=== PATIENT | female | born 1940 | race Caucasian/White ===

== ENCOUNTER → 2017-07-17 08:12 | Outpatient (CLI) | payer MEDICARE, SELFPAY ==
--- NOTE | 2017-07-17 08:14 | BI_ITS ---
MAMMOGRAPHY - BILATERAL SCREENING 3-D CYNDI SYNTHESIS REASON FOR EXAM: Female, 76 years old. Bilateral Screening 3-D tomosynthesis PERTINENT HISTORY: No significant family history. TECHNIQUE: 2-D mammograms and 3-D Cyndi synthesis of the breast (s) were performed. CAD was performed. COMPARISON: July 05, 2016. FINDINGS: The breast composition is composed of scattered fibroglandular density. Scattered benign calcifications are seen. No dense spiculated masses or suspicious microcalcifications are identified. No architectural distortion is identified. There is no skin thickening or retraction. There has been no significant change since the prior study. BI/SCREENING MAMM (CAD), BILAT IMPRESSION: No mammographic signs of malignancy. Routine yearly mammograms recommended. ASSESSMENT CATEGORY: BIRADS Category 2: Benign. A letter regarding these results will be sent to the patient by the facility within 30 days. FOLLOW UP RECOMMENDATION: Yearly follow up mammogram recommended. (A) Approximately 10% of breast cancers are not detected by mammography. A normal mammogram should not delay biopsy of a clinically suspicious abnormality. Electronically Signed: Chong Munson MD at 11:07 EDT , Service support ,
== END ==
PROVIDERS: Family Provider Family Medicine; PCP Family Medicine; Visit Provider Nurse Practitioner Adult Health
DX: Z12.31 Encounter for screening mammogram for malignant neoplasm of breast (principal)
CPT/HCPCS: 77063; 77067

== ENCOUNTER → 2018-03-03 09:21 | Outpatient (CLI) | payer MEDICARE, SELFPAY ==
--- NOTE | 2018-03-03 09:28 | RAD_ITS ---
STUDY: X-RAY - ESOPHAGUS (BARIUM SWALLOW) WITH FLUOROSCOPY REASON FOR EXAM: Female, 77 years old. Dysphasia. TECHNIQUE: 15 view(s) of the esophagus were obtained following swallowing of barium. FLUOROSCOPY TIME (if supplied): (0:27) minutes/seconds COMPARISON: None. FINDINGS: There is no demonstrated esophageal foreign body. There is no demonstrated stricture or mucosal abnormality. Normal gastroesophageal junction, without a demonstrated hiatal hernia. The patient ingested a 12 mm tablet of barium without any difficulty. Normal visualized aortic arch and descending thoracic aorta. Normal visualized pulmonary parenchyma. Normal visualized osseous structures of the thorax. RAD/Esophagus Only IMPRESSION: Normal plain film x-ray examination (barium swallow) of the esophagus. Electronically Signed: Dawit Jerry MD at 9:40 EST Tel [phone], Service support ,
== END ==
PROVIDERS: Family Provider Family Medicine; PCP Family Medicine; Referring Provider Otolaryngology Otolaryngology/Facial Plastic Surgery; Visit Provider Otolaryngology Otolaryngology/Facial Plastic Surgery
DX: R13.10 Dysphagia, unspecified (principal)
CPT/HCPCS: 74220

== ENCOUNTER → 2018-08-01 12:07 | Outpatient (CLI) | payer MEDICARE, SELFPAY ==
--- NOTE | 2018-08-01 12:09 | BI_ITS ---
MAMMOGRAPHY - BILATERAL SCREENING REASON FOR EXAM: Female, 78 years old. Routine annual screening examination. PERTINENT HISTORY: Non-contributory. TECHNIQUE: Digital bilateral breast meche (3D mammographic acquisition) in the CC and MLO projections. 2-D mediolateral oblique (MLO) and craniocaudad (CC) views of both breasts were obtained. CAD: Full Field Digital Mammography with Computer Added Detection was performed. COMPARISON: Comparison is made with prior study dated July 17, 2017 and July 05, 2016. FINDINGS: Breast Composition: There are scattered areas of fibroglandular density. There are no dominant masses or suspicious calcifications. No other significant abnormalities are identified. There has been no significant change since the prior study. BI/SCREENING MAMM (CAD), BILAT IMPRESSION: Stable bilateral screening mammogram. Yearly follow-up mammogram recommended. (A) ASSESSMENT CATEGORY: BIRADS Category 1: Negative. A letter regarding these results will be sent to the patient by the facility within 30 days. Approximately 10% of breast cancers are not detected by mammography. A normal mammogram should not delay biopsy of a clinically suspicious abnormality. [id number] Electronically Signed: Dawit Jerry, at 14:16 EDT , Service support ,
== END ==
PROVIDERS: Family Provider Family Medicine; PCP Family Medicine; Referring Provider Family Medicine; Visit Provider Family Medicine
DX: Z12.31 Encounter for screening mammogram for malignant neoplasm of breast (principal)
CPT/HCPCS: 77063; 77067

== ENCOUNTER → 2018-08-11 09:43 | Outpatient (CLI) | payer MEDICARE, SELFPAY ==
--- NOTE | 2018-08-08 09:42 | RAD_ITS ---
STUDY: X-RAY - RIGHT KNEE REASON FOR EXAM: Female, 78 years old. Bilateral knee pain TECHNIQUE: 4 view(s) of the knee. COMPARISON: None. FINDINGS: Normal visualized distal femur. Normal visualized proximal tibia and fibula. Normal proximal tibiofibular articulation. There is moderate degenerative arthrosis of the medial femorotibial compartment. Chondrocalcinosis of the lateral femorotibial compartment. There is mild degenerative arthrosis of the patellofemoral articulation. There is no demonstrated joint effusion. The soft tissue structures are unremarkable. RAD/Knee 4 or More Views IMPRESSION: 1. Medial dominant osteoarthrosis. Electronically Signed: Epifanio Soto MD at 14:13 EDT , Service support ,
--- NOTE | 2018-08-08 09:42 | RAD_ITS ---
STUDY: X-RAY - LEFT KNEE REASON FOR EXAM: Female, 78 years old. Left knee pain TECHNIQUE: 4 view(s) of the knee. COMPARISON: None. FINDINGS: Normal visualized distal femur. Normal visualized proximal tibia and fibula. Normal proximal tibiofibular articulation. There is moderate degenerative arthrosis of the medial femorotibial compartment with moderate joint space narrowing. Chondrocalcinosis of the lateral femorotibial compartment. There is mild degenerative arthrosis of the patellofemoral articulation. There is no demonstrated joint effusion. The soft tissue structures are unremarkable. RAD/Knee 4 or More Views IMPRESSION: Medial dominant osteoarthrosis Electronically Signed: Epifanio Soto MD at 14:11 EDT , Service support ,
[2018-08-11 13:19] LABS: ALB/GLOB Ratio 1.2 RATIO (0.9-2.4); AST(SGOT) 24 U/L (15-37); Alanine Aminotransfer ALT/SGPT 27 U/L (13-56); Albumin, Serum 3.7 g/dL (3.2-5.0); Alkaline Phosphatase 73 U/L (45-117); Anion Gap 6 (5-15); BUN 18 mg/dL (7-18); BUN/Creat Ratio 30.5 RATIO (10-20); Calcium,Total 8.6 mg/dL (8.5-10.1); Chloride 110 mmol/L (98-107); Cholesterol 144 mg/dL (200); Creatinine, Serum 0.59 mg/dL (0.55-1.02); EST Glomerular Filtration Rate 105 mL/min (>60); Est Glom Filt Rate - Afr Amer 127 mL/min (>60); Glucose 88 mg/dL (74-106); High Density Lipoprotein 59 mg/dL; Protein, Total 6.7 g/dL (6.4-8.2); Sodium Level 145 mmol/L (136-145); Triglycerides 69 mg/dL; Very Low Density Lipoprotein 14 mg/dL (5-40); Vitamin D,25 Hydroxy 36.3 ng/mL (29.95-100.01)
== END ==
PROVIDERS: Family Provider Family Medicine; PCP Family Medicine; Referring Provider Family Medicine; Visit Provider Family Medicine
DX: Z00.00 Encounter for general adult medical examination without abnormal findings (principal); M25.561 Pain in right knee; M25.562 Pain in left knee; E78.5 Hyperlipidemia, unspecified; E55.9 Vitamin D deficiency, unspecified
CPT/HCPCS: 36415; 73564; 80053; 80061; 82306

== ENCOUNTER → 2018-08-14 09:24 | Outpatient (CLI) | payer MEDICARE, SELFPAY ==
--- NOTE | 2018-08-14 09:38 | BD_ITS ---
STUDY: DUAL ENERGY X-RAY ABSORPTIOMETRY / DXA REASON FOR EXAM: Female, 78 years old. The patient is postmenopausal. Loss of height. TECHNIQUE: Bone Mineral Density (BMD) measurements of lumbar spine and right hip were obtained. The patient is status post left hip replacement. COMPARISON: Comparison is made with prior study dated June 08, 2014. FINDINGS: Lumbar Spine (L1-L4): g/cm2 (1.377) / T-score (1.5) / Z-score (3.3) Findings are suggestive of normal bone density with a low fracture risk. Right Femur Total: g/cm2 (0.915) / T-score (-0.7) / Z-score (1.1) Right Femoral Neck: g/cm2 (0.935) / T-score (-0.7) / Z-score (1.3) The T-Scores on the most recent prior examination were: Lumbar Spine (L1-L4): There has been improvement of bone density since the previous examination. Right Femur Total: which represents an improvement of 6%. BD/Dexa Bone Density Study IMPRESSION: The patient is considered normal as outlined below according to World Perez Organization (WHO) criteria with a low fracture risk. There has been improvement of bone density since the previous examination. Reference Information: The T-score is the number of standard deviations above or below the standard which is normal for young adults at their peak bone mineral density. The World Health Organization (WHO) interprets the T-scores as follows: Above -1 Normal bone density Between -1 and -2.5 Osteopenia Equal to / or below -2.5 Osteoporosis As a practical clinical guideline, osteopenia may be graded as follows: Mild -1 through -1.5 Moderate -1.6 through -2.0 Severe -2.1 through -2.4 The Z-score is the number of standard deviations above or below age-matched controls. A Z-score of less than -1.5 would be considered abnormal. References: 1. NIH Osteoporosis and Related Bone Diseases http://www.osteo.org 2. International Society for Clinical Densitometry http://www.iscd.org 3. National Osteoporosis Foundation http://www.nof.org Electronically Signed: Dawit Jerry, at 12:27 EDT , Service support ,
== END ==
PROVIDERS: Family Provider Family Medicine; PCP Family Medicine; Referring Provider Family Medicine; Visit Provider Family Medicine
DX: M81.0 Age-related osteoporosis without current pathological fracture (principal); Z78.0 Asymptomatic menopausal state
CPT/HCPCS: 77080

== ENCOUNTER 2018-09-17 06:45 | Day surgery (SDC) | payer MEDICARE, SELFPAY ==
[2018-08-22 08:40] VITALS: BMI 33.0
--- NOTE | 2018-08-22 08:58 | HP_ITS ---
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 Is patient in pain?: No Allergies No Known Allergies Allergy (Unverified 08/22/18 08:41) Medications ascorbic acid (vitamin C) 500 mg capsule mg PO cap 08/22/18 [History Confirmed 08/22/18] aspirin 81 mg tablet,delayed release 81 mg PO DAILY 08/22/18 [History Confirmed 08/22/18] atorvastatin 20 mg tablet 20 mg PO DAILY 08/22/18 [History Confirmed 08/22/18] calcium carbonate 500 mg calcium (1,250 mg) tablet 500 mg PO DAILY tab 08/22/18 [History Confirmed 08/22/18] cholecalciferol (vitamin D3) 1,000 unit capsule 1,000 unit PO DAILY 08/22/18 [History Confirmed 08/22/18] ferrous sulfate 325 mg (65 mg iron) tablet 325 mg PO DAILY tab 08/22/18 [History Confirmed 08/22/18] naproxen 250 mg tablet 250 mg PO BID PRN 08/22/18 [History Confirmed 08/22/18] PFSH Medical History Ganglion cyst (Acute) High cholesterol (Acute) Surgical History H/O bilateral hip replacements (Acute) H/O section (Acute) Family History Mother Hypertension Father CVA (cerebral vascular accident) Social History Smoking Status: Never smoker alcohol intake: never HPI HPI HPI: SAMINA SHINE, is a 78 F who presents to the office today for HPI HPI Surgical H&P: Yes HPI: SAMINA SHINE, is a 78 F who presents to the office today for screening colonoscopy due to history of polyps. Patient's last colonoscopy was in 2011 in [place] and she did have a small sessile polyp in the proximal ascending colon along with diverticulosis and internal hemorrhoids. Do not currently have the pathology report but patient states she was due in 5 years due to the polyp. Patient does complain of some burning at night which she assumed may be from the rectal area. But upon further questioning it sounds like this only occurs when she urinates. Patient denies any pain or burning with bowel movements and states she has bowel movements daily denies any blood. Patient states the burning at night when urinating have been more than 1999 and now it really occurs maybe once a month. Patient denies any family history of colon cancer. Denies any abdominal pain/nausea/vomiting/reflux. ROS General General: No weight change or fatigue Gastro Gastrointestinal: No abdominal pain, No nausea or vomiting, No diarrhea, No constipation, No blood in stool, No acid reflux, No hemorrhoids, No ulcers, No gallbladder problem, No black,tarry stools Exam Const General: cooperative, comfortable, no acute distress GI Inspection: non-distended, scar (Lower midline incision ) Palpation: soft, nontender Assessment & Plan Problems 1. History of colon polyps Z86.010 Plan I have discussed the above with the patient. I have offered the patient colonoscopy for evaluation. I have explained the risks/benefits of the procedure and described the procedure. I have discussed the risks with the patient, including but not limited to: infection, bleeding, perforation of the GI tract requiring emergency surgery, inability to complete the procedure, injury to any internal organs, complications of anesthesia, etc. - the patient understands and agrees to proceed. I have answered all the patient's questions to the patient's satisfaction and the patient has no further questions. The patient has been given instructions for the colon cleansing preparation. 1 day of clears, MiraLAX Dulcolax split prep Deysi Desai M.D. Pager: [phone] [facility] [address] [place] [address], [facility], [address] [place] [address] Office: [phone] Plan Detail Follow Up We will schedule colonoscopy Coding Level of Care Code Off vis,new,level 3 Diagnoses History of colon polyps Z86.010 08/22/18 0859 <Electronically signed by Deysi Brice am, MD> Date _ Deysi Desai MD I have examined the patient the following changes are noted: Patient denies any abdominal pain or burning sensation at night since seen in the office. Patient no further question at this time.
[2018-09-17 06:58] VITALS: BP 141/88; PULSE 65; RESP 16; TEMP 36.1; O2SAT 96; BMI 30.7
--- NOTE | 2018-09-17 08:00 | COLBX_PTH ---
PATIENT: SAMINA SHINE LOC: EN U#:[id number] AGE/SX: 78/F ROOM: RE09/17/[address]: Dr. Deysi Desai MD : [id number] BED: DIS: 09/17/2018 SPEC #: [id number] RECD: 09/17/18 11:16 STATUS: MARY POOJA #: [id number] RADHA: 09/17/18 08:[address]: Deysi Desai DEPT: SURGICAL PATHOLOGY RECD BY: Brent Verdugo ENTERED: 09/17/18 13:12 SP TYPE: COLON BX OTHR DR: Dr. Bradley Del Valle MD Tissues: Rectum, NOS Procedures: Surgery Specimen Level IV HEADER OPERATION: Colonoscopy (MAC) PRE-OP DIAGNOSIS: Screening colonoscopy, history of polyps TISSUE SUBMITTED: Rectal polyp MICROSCOPIC DIAGNOSIS Rectal polyp: Tubular adenoma. FA:leisa 09/18/18 MICROSCOPIC DESCRIPTION Slides are reviewed. GROSS DESCRIPTION Received in fixative is one container labeled with the patient's name and designated rectal polyp. The specimen consists of a single pinkish-baker polypoid tissue fragment measuring 2 mm in greatest dimension. The specimen is totally submitted in one cassette. / FA:leisa 09/17/18 TC:5 CPT: 16364
[2018-09-17 08:06] VITALS: BP 126/70; BP 141/88; PULSE 78; RESP 16; TEMP 37.2; O2SAT 96
--- NOTE | 2018-09-17 08:07 | OP.ENDO_ITS ---
09/17/2018 Bradley Del Valle MD [address] [id number] Re : Colonoscopy procedure for Gila Goldsmith Dear Dr. Del Valle This procedure was performed on Monday, September 17, 2018. My impressions and recommendations are as follows: Impressions : - One less than 5 mm polyp in the rectum, removed with a cold biopsy forceps. Resected and retrieved. - The examination was otherwise normal on direct and retroflexion views. Recommendations : - Discharge patient to home. - Continue present medications. - Await pathology results. - Repeat colonoscopy in 3 - 5 years for surveillance based on pathology results. My findings are described in the full procedure note, which is enclosed. If I can be of further assistance, please feel free to contact me at Doctor phone number(s): , Work: . Sincerely, MD Deysi Mckeon MD 09/17/2018 8:06:53 AM This report has been signed electronically.
[2018-09-17 08:10] VITALS: BP 137/70; BP 141/88; PULSE 73; RESP 16; O2SAT 97
[2018-09-17 08:15] VITALS: BP 130/72; BP 141/88; PULSE 68; RESP 16; O2SAT 98
[2018-09-17 08:20] VITALS: BP 137/83; BP 141/88; PULSE 68; RESP 16; TEMP 36.1; O2SAT 100
[2018-09-17 08:36] VITALS: BP 141/88
== END 2018-09-17 08:45 | disposition home or self-care (01) ==
LOC: EN 06:46 → AC 06:46
PROVIDERS: Family Provider Family Medicine; PCP Family Medicine; Referring Provider Family Medicine; Visit Provider Surgery
PROC: 0DJD8ZZ Inspection of Lower Intestinal Tract, Via Natural or Artificial Opening Endoscopic (ICD-10-PCS; CPT 45378; principal; 2018-09-17 07:55)
DX: Z12.11 Encounter for screening for malignant neoplasm of colon (principal); D12.8 Benign neoplasm of rectum; K64.8 Other hemorrhoids; E78.00 Pure hypercholesterolemia, unspecified; Z78.0 Asymptomatic menopausal state; Z79.82 Long term (current) use of aspirin; Z79.899 Other long term (current) drug therapy; Z87.19 Personal history of other diseases of the digestive system; Z86.010 Personal history of colon polyps; Z96.643 Presence of artificial hip joint, bilateral
CPT/HCPCS: 45380; 88305; J7120

== ENCOUNTER 2019-03-24 10:00 | Outpatient (RCR) | payer MEDICARE, SELFPAY ==
--- NOTE | 2019-02-25 15:01 | HP.PTEVAL_ITS ---
Patient's Visit Information SAMINA SHINE is a 78 year old F referred to Physical Therapy by Bradley Del Valle MD with a diagnosis of Leg pain. Date of Evaluation: 02/25/19 Physical Therapist: AGUSTINA Dominguez - Visit Plan Frequency: 2x /Week Duration: 2 Months Plan: 2X/ week for 4-6 weeks for L ankle stretching, strengthening, L LE strengtnening ( has a previous L THR), functional activities and gait with a HEP. +++FOCUS ON L ANKLE DF and previous L THR+++ - Subjective Findings: Pt reports that 10 years ago she was having L hip pain and went through 2 years of therapy and the had her hip replacement in Dec 2009 and went through PT and was great. She is now retired and does not have her daily schedule she did before and then all fo the sudden they put her on Fosamax. She took a prolia shot last year in the spring and she was fine in the begining and then in Feb she started to get bad pain in lower legs and she could not sleep and she just kept going. She went to the Dr at check up time and got the second shot.... sooner or later the pain moved up and her knees swelled really bad. She was given an anti-inflammatory ( took morning and night) and she stretched it out and it luke took the swelling out of the knee and then her hips started her hurt. When she walks she drags her L foot and she is very unstable and she is afraid of falling. she weaves with walking. She forces herself to walk regular steps in the morning but by evening she is so tired and can' t think about it. She is more worried about her fear of falling and wants to walk normal cause she is having some pain but thinks that she is walking weird. Stairs: she is getting better and she can go a few steps recip but has to hold onto a railing. - Objective Gait: walks with decreased DF on the L ( foot slap if listening to gait pattern), decreased stance time on the L, uncoordination of L leg with gait. LE MMT: L ankle DF 3-/5, ankle PF 4-/5, knee ext 4/5, knee flexion 4/5, hip abd 4- /5, hip flex 4-/5. R ankle DF 4/5, ankle PF 4/5, knee flex and ext 4/5, hip abd 4/5, hip flex 3+/5. FGA: 19. Tight B gastroc but L is worse than the R. Palpation: tender on the L hip lateral side just inferiot to the greater trochanter. Pt is able to do 1/2 normal rom bridge - Balance Scores Functional Gait Assessment Score: 19 % Disability: 36.6700 - Goals Goal 1:: I HEP Goal Time Frame: 4-6 Weeks Goal 2:: Increase L LE strength (including ankle DF) by 1/2 muscle grade ( at time of the eval: L ankle DF 3-/5, ankle PF 4-/5, knee ext 4/5, knee flexion 4/5, hip abd 4-/5, hip flex 4-/5). Goal Time Frame: 4-6 Weeks Goal 3:: Be able to walk with no foot slap on the R LE Goal Time Frame: 4-6 Weeks Goal 4:: Decrease L hip pain by 50% Goal Time Frame: 4-6 Weeks Goal 5:: Increase FGA by 5 point to decrease fall risk ( at time of eval score was 19) Goal Time Frame: 4-6 Weeks - Rehabilitation Potential Rehabilitation Potential: Good - Anticipated Interventions Patient/Client Instruction: Educate patient on: Condition, Plan of Care For the Purpose of:: To decrease pain, To increase ROM, To improve nutrient delivery to tissue, To improve muscle performance and motor function, To improve ability to perform ADL's, To increase tolerance to activity/condition/position, To improve performance and independence with ADL's, To decrease level of supervision to perform tasks, To improve ability of physical actions for home/community/work/leisure, To improve gait and locomotor functions, To increase flexibility/ROM Therapeutic Exercise to Include: Strength training, Balance training, Postural training, Gait and locomotor training, Passive ROM, Active ROM For the Purpose of:: To decrease pain, To increase ROM, To improve nutrient delivery to tissue, To increase oxygenation perfusion, To improve ability to perform ADL's, To increase tolerance to activity/condition/position, To improve performance and independence with ADL's, To decrease level of supervision to perform tasks, To improve ability of physical actions for home/community/work/leisure, To improve gait and locomotor functions, To improve health of tissue, To increase flexibility/ROM, To improve balance Functional Training to Include: Gait training For the Purpose of:: To improve gait and locomotor functions, To improve safety with gait Manual Therapy Techniques to Include: Passive ROM For the Purpose of:: To increase ROM, To increase flexibility/ROM Thank you for the opportunity to evaluate your patient. For Medicare and Medicare HMO plans, please review the plan of care and approve it. It will need to be FAXED BACK to us at [phone] for Medicare purposes. For Medicare only, by signing this I certify the plan of care. Please let me know if there are questions or concerns regarding this plan of care. Physician Signature: Date:
--- NOTE | 2019-03-24 10:25 | HP.PTDCSUM ---
HP - PT D/C Summary It has been my pleasure to treat SAMINA SHINE under orders from Bradley Del Valle MD, for the diagnosis of Leg pain for a total of 8 visit(s). Discharge Date: 03/24/19 Please see the following information for a summary of their discharge status. - Subjective Subjective: Pt reports no pain. SHe is going to continue to do exercises on her own for a month at the [facility] for a month. She still is afraid to run yet but she is walkingmuch better and is able to step over the curn now. - Pain L thigh Pain Intensity (Out of 10): 2 - Overall Improvement % Improvement: 80 - Objective Objective/Function: FGA 24. LE MMT: L hip flex 4/5 and R 4+/5, B knee ext B 4/5, B knee felx 4/5, B hip abd 4/5, L DF 4-/5 - Goals Goal 1:: I HEP Goal Progress: Goal Met Goal 2:: Increase L LE strength (including ankle DF) by 1/2 muscle grade ( at time of the eval: L ankle DF 3-/5, ankle PF 4-/5, knee ext 4/5, knee flexion 4/5, hip abd 4-/5, hip flex 4-/5). Goal Progress: Goal Met Goal 3:: Be able to walk with no foot slap on the R LE Goal Progress: Goal Met Goal 4:: Decrease L hip pain by 50% Goal Progress: Goal Met Goal 5:: Increase FGA by 5 point to decrease fall risk ( at time of eval score was 19) Goal Progress: Goal Met - Plan Plan: DC PT - D/C Information Discharge Comments: DC PT to I exercises program If there are questions or concerns regarding this patient's physical therapy, please feel free to call me at [phone]. Thank you for the referral of this patient. Sincerely, Ann Mathews, MPT
== END 2019-03-24 14:42 | disposition home or self-care (01) ==
LOC: PT 10:00
PROVIDERS: Family Provider Family Medicine; PCP Family Medicine; Referring Provider Family Medicine; Visit Provider Family Medicine
DX: M79.606 Pain in leg, unspecified (principal)
CPT/HCPCS: 97110; 97161; 97530

== ENCOUNTER → 2019-08-03 12:11 | Outpatient (CLI) | payer MEDICARE, SELFPAY ==
--- NOTE | 2019-08-03 12:13 | BI_ITS ---
MAMMOGRAPHY - BILATERAL SCREENING REASON FOR EXAM: Female, 79 years old. Routine annual screening examination. PERTINENT HISTORY: Non-contributory. TECHNIQUE: Digital bilateral breast cyndi (3D mammographic acquisition) in the CC and MLO projections. 2-D mediolateral oblique (MLO) and craniocaudad (CC) views of both breasts were obtained. CAD: Full Field Digital Mammography with Computer Added Detection was performed. COMPARISON: Comparison is made with prior study dated August 01, 2018 and July 17, 2017. FINDINGS: Breast Composition: There are scattered areas of fibroglandular density. There are no dominant masses or suspicious calcifications. No other significant abnormalities are identified. There has been no significant change since the prior study. BI/SCREEN MAMM (CAD) W/CYNDI BILAT IMPRESSION: Stable bilateral screening mammogram. Yearly follow-up mammogram recommended. (A) ASSESSMENT CATEGORY: BIRADS Category 1: Negative. A letter regarding these results will be sent to the patient by the facility within 30 days. Approximately 10% of breast cancers are not detected by mammography. A normal mammogram should not delay biopsy of a clinically suspicious abnormality. [id number] Electronically Signed: Dawit eJrry, at 13:27 EDT , Service support ,
== END ==
PROVIDERS: PCP Family Medicine; Referring Provider Family Medicine; Visit Provider Family Medicine
DX: Z12.31 Encounter for screening mammogram for malignant neoplasm of breast (principal)
CPT/HCPCS: 77063; 77067

== ENCOUNTER → 2019-08-12 14:02 | Outpatient (CLI) | payer MEDICARE, SELFPAY ==
[2019-08-12 15:58] LABS: Anion Gap 5 (5-15); BUN 16 mg/dL (7-18); BUN/Creat Ratio 27.6 RATIO (10-20); Calcium,Total 9.2 mg/dL (8.5-10.1); Chloride 106 mmol/L (98-107); Cholesterol 166 mg/dL (200); Creatinine, Serum 0.58 mg/dL (0.55-1.02); EST Glomerular Filtration Rate 107 mL/min (>60); Est Glom Filt Rate - Afr Amer 129 mL/min (>60); Glucose 90 mg/dL (74-106); High Density Lipoprotein 70 mg/dL; Potassium 4.1 mmol/L (3.5-5.1); Sodium Level 142 mmol/L (136-145); Triglycerides 96 mg/dL; Very Low Density Lipoprotein 19 mg/dL (5-40)
[2019-08-12 15:59] LABS: Vitamin D,25 Hydroxy 36.8 ng/mL
== END ==
PROVIDERS: PCP Family Medicine; Referring Provider Family Medicine; Visit Provider Family Medicine
DX: E78.00 Pure hypercholesterolemia, unspecified (principal); E55.9 Vitamin D deficiency, unspecified
CPT/HCPCS: 36415; 80048; 80061; 82306

== ENCOUNTER → 2019-08-27 10:57 | Outpatient (CLI) | payer MEDICARE, SELFPAY ==
--- NOTE | 2019-08-27 11:00 | ART_ITS ---
Reason For Study: Leg pain Procedure A bilateral lower extremity continuous wave Doppler with analog waveform analysis and ankle brachial indexes. Left Segmental Pressures Left brachial= 146mmHg. Left posterior tibial artery = 169mmHg. Left dorsalis pedis artery = 144mmHg. The left dorsalis pedis waveforms are triphasic. The left posterior tibial artery waveforms are triphasic. Right Segmental Pressures Right brachial= 139mmHg. Right posterior tibial artery = 152mmHg. Right dorsalis pedis artery = 146mmHg. The right dorsalis pedis waveforms are triphasic. The right posterior tibial artery waveforms are triphasic. Indices The right ankle brachial index by the dorsalis pedis is 1.00. The right ankle brachial index by the posterior tibial artery is 1.04. The right post exercise ankle brachial index is 1.19. The left ankle brachial index by the dorsalis pedis is 0.99. The left ankle brachial index by the posterior tibial artery is 1.16. The left post exercise ankle brachial index is 1.28. Interpretation Summary Triphasic Doppler waveforms are noted at ankle level bilaterally. Resting ankle-brachial indices are normal bilaterally. The patient ambulated on a treadmill for 5 minutes at 2 MPH at a 5% grade, without complaints. One minute following cessation of exercise, ankle pressures augmented bilaterally, which is a normal physiological response. There is no evidence of significant arterial occlusive disease in the lower extremities bilaterally. Ordering Physician: Bradley Del Valle Referring Physician: Bradley Del Valle Performed By: Cindy Pulido RVT
== END ==
PROVIDERS: PCP Family Medicine; Referring Provider Family Medicine; Visit Provider Family Medicine
DX: M79.606 Pain in leg, unspecified (principal); I79.8 Other disorders of arteries, arterioles and capillaries in diseases classified elsewhere
CPT/HCPCS: 93922

== ENCOUNTER → 2020-02-12 09:44 | Outpatient (CLI) | payer MEDICARE, SELFPAY ==
[2020-02-12 12:46] LABS: ALB/GLOB Ratio 1.2 RATIO (0.9-2.4); AST(SGOT) 23 U/L (15-37); Alanine Aminotransfer ALT/SGPT 34 U/L (13-56); Albumin, Serum 3.7 g/dL (3.2-5.0); Alkaline Phosphatase 95 U/L (45-117); Anion Gap 3 (5-15); BUN 18 mg/dL (7-18); BUN/Creat Ratio 29.4 RATIO (10-20); Calcium,Total 9.1 mg/dL (8.5-10.1); Chloride 109 mmol/L (98-107); Cholesterol 177 mg/dL (200); Creatinine, Serum 0.61 mg/dL (0.55-1.02); EST Glomerular Filtration Rate 100 mL/min (>60); Est Glom Filt Rate - Afr Amer 121 mL/min (>60); Globulin 3.2 g/dL (2.2-4.2); Glucose 86 mg/dL (74-106); High Density Lipoprotein 71 mg/dL; Protein, Total 6.9 g/dL (6.4-8.2); Sodium Level 142 mmol/L (136-145); Triglycerides 84 mg/dL; Very Low Density Lipoprotein 17 mg/dL (5-40)
== END ==
PROVIDERS: PCP Family Medicine; Visit Provider Family Medicine
DX: E78.00 Pure hypercholesterolemia, unspecified (principal)
CPT/HCPCS: 36415; 80053; 80061

== ENCOUNTER → 2020-04-13 16:42 | Outpatient (CLI) | payer MEDICARE, SELFPAY ==
--- NOTE | 2020-04-13 16:50 | CT_ITS ---
STUDY: RIGHT LOWER EXTREMITY CT SCAN REASON FOR EXAM: Female, 79 years old. VARUS DEFORMITY. [facility] PROTOCOL RADIATION DOSAGE (If Supplied By Facility): CTDIvol = ( 18.76 ) mGy, DLP = ( 1105.17 ) mGycm. Individualized dose optimization techniques were used for this CT.? TECHNIQUE: Axial multidetector CT scan of the right lower extremity. Coronal and sagittal reformatted images. COMPARISON: X-ray dated 08/08/2018. FINDINGS: Mild varus angulation at the knee. Ankle valgus. Moderate right hip osteoarthritis. Spurring at the greater trochanter. Severe pubic symphysis arthrosis. Severe right knee osteoporosis predominating at the medial and patellofemoral compartments. Mild proximal tibiofibular joint arthrosis. Quadriceps enthesophyte. Multiple osteophytes. Small volume right knee joint effusion. Soft tissue swelling at the knee. Chondrocalcinosis at the knee. Vacuum phenomenon at the medial compartment suggests meniscal tear. Right ankle mild tibiotalar and subtalar arthrosis. Plantar spur. Achilles enthesophyte. No acute fracture line. No acute dislocation. No acute bone destruction. CT/Extremity Lower without Contra IMPRESSION: Moderate right hip osteoarthritis Severe right knee osteoarthritis Mild right ankle osteoarthritis Knee varus and ankle valgus Electronically Signed: Bladimir Jacobson DO at 11:06 EST Tel , Service support ,
== END ==
PROVIDERS: PCP Family Medicine; Referring Provider Orthopaedic Surgery; Visit Provider Orthopaedic Surgery
DX: M21.161 Varus deformity, not elsewhere classified, right knee (principal)
CPT/HCPCS: 73700

== ENCOUNTER 2020-04-25 13:41 | Observation (INO) | payer MEDICARE, SELFPAY ==
--- NOTE | 2020-04-18 09:14 | EKG12_ITS ---
Test Reason : PREOP Blood Pressure : / mmHG Vent. Rate : 064 BPM Atrial Rate : 064 BPM P-R Int : 136 ms QRS Dur : 088 ms QT Int : 378 ms P-R-T Axes : 067 038 048 degrees QTc Int : 389 ms Normal sinus rhythm with sinus arrhythmia Normal ECG Confirmed by REMY TERRY, ORVILLE ([id number]), associate entertainment editor PAULY SANDOVAL ([id number]) on 04/19/2020 10:53:36 AM Referred By: Jaime Castillo Confirmed By:ORVILLE ALBERTO MD
--- NOTE | 2020-04-18 09:14 | RAD_ITS ---
STUDY: X-RAY CHEST REASON FOR EXAM: Female, 79 years old. PRE OP FOR TOTAL KNEE, NO CHEST COMPLAINTS TECHNIQUE: PA and lateral views of the chest. COMPARISON: None. FINDINGS: The lungs are clear and expanded. There is no demonstrated pleural abnormality. Normal size heart. Normal mediastinum and donn. Normal visualized pulmonary arteries. There is atherosclerotic tortuosity of the aortic arch and descending thoracic aorta. Normal visualized thoracic spine. Normal visualized ribs, clavicles, and shoulders. There is no demonstrated abnormality of the visualized soft tissue structures of the upper abdomen. RAD/Chest PA and Lateral IMPRESSION: Normal x-ray examination of the chest. Electronically Signed: Efrain Denson MD at 16:51 EST Tel , Service support ,
[2020-04-18 10:45] LABS: Absolute Lymphocyte Count 1.73 X10^3/uL (0.83-4.51); Absolute Neutrophil Count 3.4 X10^3/uL (2.0-7.7); Basophil# 0.04 X10^3/uL; Basophil% 0.7 % (0-1); Eosinophil# 0.15 X10^3/uL; Eosinophils% 2.5 % (0-5); Hematocrit 41.8 % (37-47); Hemoglobin 13.6 g/dL (12.0-15.0); Lymphocyte # 1.73 X10^3/ul (4.0); Lymphocyte % 28.8 % (19-41); Mean Corp Hgb Conc 32.5 g/dL (32-36); Mean Corpuscular Hgb 30.2 pg (27.0-32.0); Mean Corpuscular Volume 92.9 fL (81-99); Monocyte# 0.63 X10^3/uL; Monocyte% 10.5 % (0-10); NRBC Flagged by Analyzer 0 % (0-5); Neutrophil # 3.43 X10^3/uL (2.7-7.7); Neutrophil % 57.2 % (47-70); Platelet Count 272 K/mm3 (150-450); RBC Distribution Width CV 13.4 % (11.6-14.6); RBC Distribution Width SD 45.6 fl (35.1-43.9)
[2020-04-18 11:16] LABS: Magnesium 2.3 mg/dL (1.6-2.6)
[2020-04-18 11:18] LABS: Anion Gap 5 (5-15); BUN 14 mg/dL (7-18); BUN/Creat Ratio 21.6 RATIO (10-20); Calcium,Total 8.9 mg/dL (8.5-10.1); Chloride 105 mmol/L (98-107); Creatinine, Serum 0.65 mg/dL (0.55-1.02); EST Glomerular Filtration Rate 94 mL/min (>60); Est Glom Filt Rate - Afr Amer 113 mL/min (>60); Glucose 83 mg/dL (74-106); Potassium 3.6 mmol/L (3.5-5.1); Sodium Level 143 mmol/L (136-145)
[2020-04-25] VITALS (9 sets, daily range): BP systolic 96–124; BP diastolic 39–83; PULSE 70–84; RESP 16–18; TEMP 36.7–37.3; O2SAT 92–100; BMI 28.6; BMI 28.7
[2020-04-25] MEDS: Lactated Ringers 1,000 ML 100 ML IV ×2 (11:32→17:22)
[2020-04-25] MEDS: Celecoxib 200 MG Capsule 400 MG PO (11:33)
[2020-04-25] MEDS: Scopolamine 1mg/72hr Patch 1 PATCH TD (11:33)
[2020-04-25] MEDS: Acetaminophen 500 MG Tablet 1000 MG PO ×3 (11:34→20:57)
[2020-04-25] MEDS: Gabapentin 600 MG Tablet PO (11:34)
--- NOTE | 2020-04-25 13:00 | KNEE_PTH ---
PATIENT: SAMINA SHINE LOC: MS3 U#:[id number] AGE/SX: 79/F ROOM: MS313 RE04/25/[address]: Dr. Jaime Castillo MD : [id number] BED: 1 DIS: 04/26/2020 SPEC #: [id number] RECD: 04/26/20 07:35 STATUS: MARY PATTON #: [id number] RADHA: 04/25/20 13:[address]: Jaime Castillo DEPT: SURGICAL PATHOLOGY RECD BY: Nikki Francis ENTERED: 04/26/20 07:54 SP TYPE: TOTAL KNEE OTHR DR: Dr. Bradley Del Valle MD Tissues: Knee, NOS Procedures: Decalcification bone/plaque Surgery Specimen Level IV HEADER OPERATION: ERAS, total knee replacement robotic arm assist PRE-OP DIAGNOSIS: Osteoarthritis TISSUE SUBMITTED: Right knee MICROSCOPIC DIAGNOSIS Bone of right knee, total knee resection: Severe degenerative joint disease. AM:leisa 04/29/2020 MICROSCOPIC DESCRIPTION Slides are reviewed. GROSS DESCRIPTION Received is one container designated bone of right knee. The specimen consists of multiple fragments of baker-yellow bone measuring in aggregate 13.5 x 11 x 2 cm. A number of bony fragments contain articular surfaces consistent with tibial plateau and femoral condyle and displaying prominent osteophyte formation, eburnation, and bone erosion. Dental Appliance Repairer sections are submitted in one cassette after decalcification. / AM:leisa 04/26/20 TC:5 CPT: 36872, 34050
[2020-04-25] MEDS: Cefazolin 2 GM in 0.9% Normal Saline 100 ML IV (13:32)
[2020-04-25] MEDS: dexAMETHasone 10 MG/ML Vial IV (13:46)
--- NOTE | 2020-04-25 14:53 | PRO.PCM_ITS ---
Procedure Report Date of Procedure: 04/25/20 Preoperative diagnosis: Right knee severe arthritis Postoperative diagnosis: Same Title of procedure : Right total knee replacement, press fit DENNIS Surgeon: Jaime Castillo MD Trailhead Maintenance Worker: Allegra Nowak PA-C Anesthesia: Spinal adductor canal nerve block Anesthesiologist:Dr. Garcia / TIFFANY Special medications: Ancef, tranexamic acid EBL 50 Complications: None Indications for surgery: Patient is a [79-year-old [female] with a history of knee arthritis appropriately treated and failed conservative measures and wished to proceed with total knee replacement. Patient was cleared for surgery by the medical doctor and has been evaluated by the anesthesia staff Findings: Intraoperative findings showed severe arthritis of the knee. Patient underwent knee replacement using [employer] press-fit total knee components Dennis robotic assisted. Size [5] femur, size [5] tibia, [32 x 10] asymmetric X3 patella, size [5-9 CS] X3 tibial polyethylene insert, knee was nicely balanced. Patella tracked well. Patient underwent standard wound closure in layers. Vicryl and strata fix sutures utilized followed by skin roc. human services assistant, physician perinatal breastfeeding assistant, was utilized throughout the entire procedure. They were vital in helping with patient positioning, holding of retractors, exposing the tissues adequately for safe completion of the procedure including cutting of the bone, helping detective sergeant appropriate alignment and sizing of the components, implantation of the components, as well as wound closure, bandage application, and safe patient transfer. Without operating room surgical technician, physician perinatal breastfeeding assistant, surgical time would have been significantly increased, and surgical outcome could have been less optimal. Description of procedure: The patient was taken to the OR, transferred to the OR table. They were given a spinal anesthetic. Ancef was given IV preoperatively. Tranexamic acid was given IV preoperatively. Well-padded tourniquet was applied to the upper thigh of the operative leg. Nonoperative leg had a ELIZABETH hose and SCD on throughout. Operative limb was prepped padded and draped in usual orthopedic sterile fashion for the procedure. We began by injecting the pain relieving solution in the anterior superior aspect of the knee region. The limb was exsanguinated, and the tourniquet was applied to 250 mmHg. Made a midline incision through skin, subcutaneous tissue, bringing down us on the extensor mechanism. Medial parapatellar arthrotomy was carried out. Straw-colored joint fluid was evacuated. We raised a sleeve of tissue off the upper medial tibia. Resected some of the infrapatellar fat pad. We remove degenerative medial and lateral meniscus. Removed bone spurs from about the patella. We removed tissue off the anterior aspect of the distal femur. Patella was translated laterally and/or everted as needed throughout the procedure. ACL was resected. PCL was preserved. Collateral ligaments were preserved. Physician placed the retractors and perinatal breastfeeding assistant held retractors protecting above ligaments throughout the procedure. Patella was everted. Measured. Appropriate resection was carried out leaving us between a 13 and 15 mm thick patella. Metal plate was applied. Pins were placed in the femur and tibia at appropriate locations being bicortical. Check pin was placed in the distal femur and upper tibia at appropriate location. 9facts robot was appropriately prepared femur then tibia. Knee was appropriately stressed in 90 degrees of flexion as well as in extension. Robot was appropriately manipulated to allow for approximately 19 to 21 mm of flexion and extension gap. Good sizing and alignment of components was noted on computer. Robotic cuts were carried out cutting the upper tibia first, followed by femoral cuts. Trailhead Maintenance Worker help with retraction and protecting soft tissues throughout. Bone fragments were removed. we then sized off the upper tibia with the help of the perinatal breastfeeding assistant. We then checked flexion extension gaps finding them to be adequate and equal. Tibial trial with plastic insert was inserted. Next the distal femoral trial was applied. Tibial tray was allowed to freefloat with a 9 mm insert. Knee was flexed and extended an external alignment guide is utilized. Tibial trial was pinned in place. Drill holes were placed into the distal femoral trial and it was removed. Punch was used on the upper tibial component and that was removed. The sclerotic bone was softened with a sharp pin. Bone spurs had been removed from the posterior medial and posterior lateral aspect of the femur while the perinatal breastfeeding assistant lifted up on the distal femur and exposed each compartment. Patella was everted and measured. Patella was sized. Clamp was utilized. 3 drill holes were placed through the clamp held by the perinatal breastfeeding assistant. Trial patella was placed and removed. Bleeding was controlled at the back of the knee with the bovey. Posterior knee soft tissues were carefully injected with pain relieving solution. Components were checked and open. . The bony surfaces cleaned and dried. Tibia, femur, patella press-fit into position. Tibial insert was placed just before placing the femur. Trailhead Maintenance Worker held retractors exposing the bony surfaces of the tibia and femur which were hammered in position. Patella clamped into position.balancing was again checked with the computer. Checkpoints and femoral and tibial pins removed. we thoroughly irrigated and debrided the knee. B leeding controlled with the Bovie. Knee was again thoroughly irrigated. Irresept solution utilized. Patella noted to track nicely. We repaired the arthrotomy with a combination of #1 Vicryl and #2 strata fix. We did a mid layer of 1 Vicryl and #0 strata fix running. Roc were utilized on the incision as well as pin sites. Mepilex dressing applied. ELIZABETH hose and SCDs applied. Patient was awoken from their anesthetic, transferred back to their own bed and recovery room in satisfactory condition. Second dose of IV Tranexamic acid was given while closing wound. Patient was admitted, appropriate IV antibiotic to be utilized as well as medication for DVT prevention. Hopeful discharge in 1-2 days. [facility] Physical therapy will be consulted. Ancef was used 2 g IV preoperatively. Xarelto will be used for DVT prevention 10 mg daily This note was generated with RescueTime dictation software. It may contain incorrect words, spelling, and punctuation that were not noted in checking the note before signing.
--- NOTE | 2020-04-25 15:40 | RAD_ITS ---
HISTORY: POST OP total right knee arthroplasty XR Knee 1 or 2 Views TECHNIQUE: 2 views # of images incl. paperwork: 2 COMPARISON: 08/08/2018 FINDINGS: Status post total right knee arthroplasty with satisfactory alignment. Expected postoperative soft tissue changes. Near midline anterior surgical skin roc. RAD/Knee 1 or 2 Views IMPRESSION: 1. Status post total right knee arthroplasty with satisfactory alignment. at 1742 Reported and signed by: Fernando Bruner MD Electronically Signed: Fernando Bruner MD at 17:41 EST Tel , Service support ,
[2020-04-25] MEDS: Cefazolin 1 GM/50 ML BAG IV ×2 (18:35→22:59)
[2020-04-26 02:34] VITALS: BP 113/52; PULSE 57; RESP 18; TEMP 36.6; O2SAT 94
[2020-04-26] MEDS: Cefazolin 1 GM/50 ML BAG IV (06:14)
[2020-04-26] MEDS: Rivaroxaban 10 MG Tablet PO (06:17)
[2020-04-26] MEDS: Acetaminophen 500 MG Tablet 1000 MG PO ×2 (06:18→13:56)
[2020-04-26 06:20] VITALS: BP 112/67; PULSE 52; RESP 16; TEMP 36.4; O2SAT 96
[2020-04-26 07:12] LABS: Hematocrit 33.9 % (37-47); Mean Corp Hgb Conc 32.4 g/dL (32-36); Mean Corpuscular Hgb 30.5 pg (27.0-32.0); Mean Corpuscular Volume 93.9 fL (81-99); Platelet Count 223 K/mm3 (150-450); RBC Distribution Width CV 13.6 % (11.6-14.6); RBC Distribution Width SD 46.4 fl (35.1-43.9); Red Blood Count 3.61 M/mm3 (4.2-5.4); White Blood Count 11.6 K/mm3 (4.4-11.0)
--- NOTE | 2020-04-26 07:14 | PN.ORTHO_ITS ---
Subjective: Patient is postoperative day #1 robotic right total knee replacement. She denies chest pain or shortness of breath. Denies productive cough. She is very much wanting to go home later today. He does have outpatient therapy scheduled for later this week. She feels her pain is adequately controlled on pain medication Objective: Right knee bandages on clean and dry. There is one very small spot of dried blood on the anterior inferior knee incision region. Knee motion is 5-75 degrees. No calf pain or swelling bilaterally. Negative Homans' sign bilaterally. Good active motion toes and ankles. Good active straight leg raise on the right and left. Legs are neurovascular intact. Lab work and vital signs reviewed. Today's labs pending Xrays AP and lateral of the right knee shows a press-fit [place] total knee replacement in good position without obvious loosening failure fracture. Waqar present. - Physical Exam Vitals/I&O's: Vital Signs Temp Pulse Resp BP Pulse Ox 97.5 F L 52 L 16 112/67 96 04/26/20 06:20 04/26/20 06:20 04/26/20 06:20 04/26/20 06:20 04/26/20 06:20 Oxygen Flow Rate (L/min) 6 Oxygen Delivery Method Room Air Weight: 70 kg Body Mass Index (BMI) 28.7 Intake and Output for Last 24 Hours 04/24/20 04/25/20 04/26/20 23:59 23:59 23:59 Intake Total 1635.66 / 2135.66 1237.33 / 1237.33 Balance 1635.66 / 2135.66 1237.33 / 1237.33 Laboratory Results 04/26/20 06:15: WBC 11.6 H, RBC 3.61 L, Hgb 11.0 L, Hct 33.9 L, MCV 93.9, MCH 30.5, MCHC 32.4, RDW Std Deviation 46.4 H, RDW Coeff of Meka 13.6, Plt Count 223, MPV 10.0 04/26/20 06:15: Sodium Pending, Potassium Pending, Chloride Pending, Carbon Dioxide Pending, Anion Gap Pending, BUN Pending, Creatinine Pending, Est GFR (MDRD) Af Amer Pending, Est GFR (MDRD) Non-Af Pending, BUN/Creatinine Ratio Pending, Glucose Pending, Calcium Pending Current Medications Acetaminophen (Acetaminophen 500 Mg Tablet) 1,000 mg PO Q8 [facility] Last Admin: 04/26/20 06:18 Dose: 1,000 mg Documented by: Atorvastatin Calcium (Atorvastatin Calcium 20 Mg Tablet) 20 mg PO QHS [facility] Calcium/Vitamin D (Calcium Carb/Vitamin D 1 Tablet Tablet) 1 tablet PO DAILYCM [facility] Cholecalciferol (Cholecalciferol (Vit D3) 1,000 Unit (25mcg)) 1,000 unit PO DAILY [facility] Dexamethasone Sodium Phosphate (Dexamethasone 10 Mg/Ml Vial) 10 mg IV X1 ONE Stop: 04/26/20 10:01 Ferrous Sulfate (Ferrous Sulfate 325 Mg Tablet) [facility] Lactated Ringer's () 1,000 mls @ 100 mls/hr IV .Q10H [facility] Last Infusion: 04/26/20 06:15 Dose: 0 mls/hr Documented by: Morphine Sulfate (Morphine 2 Mg/Ml Syringe) 2 - 4 mg IV Q2H PRN PRN PRN Reason: Pain Score 6-10 Morphine Sulfate (Morphine 4 Mg/Ml Syringe) 2 - 4 mg IV Q2H PRN PRN PRN Reason: Pain Score 6-10 Ondansetron HCl (Ondansetron 4 Mg/2 Ml Vial) 4 mg IV Q8H PRN PRN PRN Reason: NAUSEA Oxycodone HCl (Oxycodone 5 Mg Tablet) 5 - 10 mg PO Q4H PRN PRN PRN Reason: Pain Score 4-10 Promethazine HCl (Promethazine 25 Mg/Ml Syringe) 12.5 mg IM Q6H PRN PRN; Protocol PRN Reason: NAUSEA/VOMITING Rivaroxaban (Rivaroxaban 10 Mg Tablet) 10 mg PO DAILY@0600 [facility] Last Admin: 04/26/20 06:17 Dose: 10 mg Documented by: Senna/Docusate Sodium (Senna/Docusate Sodium 1 Tablet) 2 tablet PO BID [facility] Last Admin: 04/25/20 20:58 Dose: Not Given Documented by: Sodium Chloride (0.9% Nacl Peripheral Flush Adult/Peds) 5 - 15 ml IV UD PRN PRN Reason: SALINE FLUSH Sodium Chloride (0.9% Saline Lock 10 Ml Syringe) 10 - 40 ml IV UD PRN PRN Reason: SALINE FLUSH Medical Necessity - Tobacco Use Smoking Status: Never smoker Tobacco Use: Non-smoker Assessment/Plan Right total knee replacement postoperative day 1. Continue with Xarelto for DVT prevention. Continue with oxycodone for pain relief with Tylenol. Continue incentive spirometer use, ELIZABETH villegas and RANDEEs. Physical therapy consulted. Plan discharge to home later today. Prescriptions for appropriate narcotics to be prescribed as well as Xarelto for DVT prevention. Outpatient physical therapy. Follow-up in office as scheduled.
[2020-04-26 07:17] LABS: Anion Gap 6 (5-15); BUN 14 mg/dL (7-18); BUN/Creat Ratio 25.4 RATIO (10-20); Calcium,Total 8.4 mg/dL (8.5-10.1); Chloride 110 mmol/L (98-107); Creatinine, Serum 0.55 mg/dL (0.55-1.02); EST Glomerular Filtration Rate 113 mL/min (>60); Est Glom Filt Rate - Afr Amer 137 mL/min (>60); Estimated Creatinine Clearance 34.99 ml/min; Glucose 131 mg/dL (74-106); Sodium Level 143 mmol/L (136-145)
--- NOTE | 2020-04-26 07:19 | DCINST_ITS ---
Discharge Diet: No Restrictions Discharge Activity: May Not Drive, May Shower, Use Walker May shower in (days): 2 Ice area for (Minutes): 20 - every hour while awake. Weight Bearing Status: Weight bearing as tolerated Elevate: Operative Extremity Additional Activity Instructions:: Wear elastic stockings for 2 weeks after your surgery. Call your doctor if your incision/area has: Continuous Slow Oozing, Sudden Increased Bleeding, Increased Pain/ Swelling, Increased Redness, Foul Smelling Discharge Call your doctor if you observe: Fever of 101 or Higher, Coldness, Increased Pain, Numbness or Tingling, Change in Color, Calf discomfort, Uncontrolled pain Change Dressing in (Days):: 1 - and daily as needed. Remove Dressing in (days):: 7 Allergies/Adverse Reactions: Allergies No Known Allergies Allergy (Verified 04/14/20 14:11) Medications to take at Discharge ascorbic acid (vitamin C) 500 mg capsule 500 mg PO DAILY cap 08/22/18 atorvastatin 20 mg tablet 20 mg PO DAILY 08/22/18 cholecalciferol (vitamin D3) 25 mcg (1,000 unit) capsule 1,000 unit PO DAILY 08/22/18 ferrous sulfate 325 mg (65 mg iron) tablet 325 mg PO DAILY tab 08/22/18 Calcium Carbonate/Vitamin D3 [Os-Tomas 500-Vit D3 600 Caplet] 1 ea PO DAILY 09/15/18 Acetaminophen [Tylenol] 1,000 mg PO Q8 tab 04/26/20 Oxycodone [Oxyir] 5 - 10 mg PO Q4H PRN PRN 7 Days #56 tab 04/26/20 Rivaroxaban [Xarelto] 10 mg PO DAILY@0600 #6 tab 04/26/20 Senna/Docusate Sodium [Senokot-S] 2 tab PO BID #20 tab 04/26/20 Primary Care Physician: Bradley Del Valle MD [Primary Care Provider] - Test Results: Test results from this visit will be discussed in further detail at your follow- up appointment, if applicable.
[2020-04-26 07:45] LABS: Bedside Glucose 92 mg/dL (70-110)
[2020-04-26] MEDS: Calcium Carb/Vitamin D 1 TABLET Tablet PO (08:30)
[2020-04-26] MEDS: Ferrous Sulfate 325 MG Tablet PO (08:30)
[2020-04-26] MEDS: Senna/Docusate Sodium 1 Tablet 2 TABLET PO (08:30)
[2020-04-26 08:32] VITALS: PULSE 60
[2020-04-26] MEDS: dexAMETHasone 10 MG/ML Vial IV (10:25)
[2020-04-26] MEDS: 0.9% NaCl Peripheral Flush Adult/Peds IV (10:25)
[2020-04-26 10:36] VITALS: BP 117/51; PULSE 62; RESP 18; TEMP 37.3; O2SAT 96
--- NOTE | 2020-04-26 11:04 | PHA.DC.MC ---
Pharmacy Service has performed discharge medication reconciliation and counseling for this patient. 1. ACETAMINOPHEN 1000MG PO Q8H 2. OXYCODONE 5-10MG PO Q4H PRN PAIN 4-10 X 7 DAYS 3. RIVAROXABAN 10MG PO DAILY X 6 DAYS 4. SENNA/DOCUSATE 2T PO BID The patient's discharge medication list was reviewed for discrepancies and discrepancies were resolved. Home Medications ascorbic acid (vitamin C) 500 mg capsule 500 mg PO DAILY cap 08/22/18 atorvastatin 20 mg tablet 20 mg PO DAILY 08/22/18 cholecalciferol (vitamin D3) 25 mcg (1,000 unit) capsule 1,000 unit PO DAILY 08/22/18 ferrous sulfate 325 mg (65 mg iron) tablet 325 mg PO DAILY tab 08/22/18 Calcium Carbonate/Vitamin D3 [Os-Tomas 500-Vit D3 600 Caplet] 1 ea PO DAILY 09/15/18 Acetaminophen [Tylenol] 1,000 mg PO Q8 tab 04/26/20 Oxycodone [Oxyir] 5 - 10 mg PO Q4H PRN PRN 7 Days #56 tab 04/26/20 Rivaroxaban [Xarelto] 10 mg PO DAILY@0600 #6 tab 04/26/20 Senna/Docusate Sodium [Senokot-S] 2 tab PO BID #20 tab 04/26/20 The patient was counseled on the following discharge medications and changes in medications for homegoing were reviewed. The Reason for Use, instructions for use, and potential side effects were reviewed for all new medications. The patient's questions regarding all of their medications were answered. The patient was able to verbally demonstrate an understanding of their discharge medications.
--- NOTE | 2020-04-26 11:05 | CASEMGMT ---
LOWELL JACKSON Face to Face with patient for initial transition planning/care coordination assessment. RN MANUEL introduced self and role at [facility]. Patient sitting in chair, alert and oriented. Patient willing to participate in assessment and is able to answer all questions appropriately. Care providers, pharmacy, and demographics verified. Patient wishes to discharge home and would like HHC for home therapy. Patient was provided a list of HHC providers including quality and resource use data and consistent with the patient?s preferred geographic region, medical needs, and insurance network. Patient to review list and provided choices. Patient states she has no further needs or concerns at this time. CM to follow for discharge planning needs that may arise. PCP: Eligio Specialists: Baldemar Castillo Pharmacy: [facility] Insurance: [employer] Prescription Benefit: yes Living Will/HPOA: yes, son Viet Goldsmith LNOK: son Living Arrangements: Patient lives alone in ranch home with 2 steps to enter the home. Patient states she was independent at home prior to surgery. Transportation: son DME/HHC: Patient states she has raised toilet, grab bars, walker at home. Patient denies previous HHC. Disposition Plan: Patient to discharge home with HHC, family support, and follow-up plans in place. Cnidy RASMUSSEN, RN, CM
--- NOTE | 2020-04-26 13:30 | CASEMGMT ---
LOWELL JACKSON in to review patient choices for C. Patient states she would prefer [facility] for home therapy. LOWELL JACKSON sent referral to [facility] and they are able to accept the patient. LOWELL JACKSON updated the patient. Patient had no further questions or concerns at this time.
[2020-04-26 13:53] VITALS: BP 124/64; PULSE 65; RESP 18; TEMP 37.3; O2SAT 97
== END 2020-04-26 14:46 | disposition home health service (06) ==
LOC: MS3 13:48 → SDC 14:01 → MS3 14:16
PROVIDERS: Anesthesiology; Physician Assistant; Admitting Provider Orthopaedic Surgery; PCP Family Medicine; Referring Provider Orthopaedic Surgery; Visit Provider Orthopaedic Surgery
PROC: 0SRC0JZ Replacement of Right Knee Joint with Synthetic Substitute, Open Approach (ICD-10-PCS; CPT 27447; principal; 2020-04-25 12:30)
DX: M17.11 Unilateral primary osteoarthritis, right knee (principal); Z20.828 Contact with and (suspected) exposure to other viral communicable diseases; H91.90 Unspecified hearing loss, unspecified ear; E78.5 Hyperlipidemia, unspecified; H54.7 Unspecified visual loss; Z79.899 Other long term (current) drug therapy; Z79.82 Long term (current) use of aspirin
CPT/HCPCS: 01402; 27447; 64447; S2900; 36415; 71046; 73560; 80048; 82962; 83735; 85025; 85027; 87081; 87426; 88305; 88311; 93005; 96361; 96365; 96366; 96375; 97110; 97162; 97166; 97530; 97535; 99218; 99251; C1776; C9803; J7120; A4216; G0378; G0379; G0463

== ENCOUNTER 2020-05-23 09:34 | Outpatient (RCR) | payer MEDICARE, SELFPAY ==
[2020-04-25 17:06] VITALS: BMI 28.7
== END 2020-05-23 23:59 ==
LOC: IMMUN 09:34
PROVIDERS: PCP Family Medicine; Visit Provider Family Medicine
DX: Z23 Encounter for immunization (principal)
CPT/HCPCS: 0011A; 0012A

== ENCOUNTER → 2020-09-12 10:17 | Outpatient (CLI) | payer MEDICARE, SELFPAY ==
[2020-04-25 17:06] VITALS: BMI 28.7
[2020-09-12 12:28] LABS: Absolute Lymphocyte Count 1.78 X10^3/uL (0.83-4.51); Absolute Neutrophil Count 3.2 X10^3/uL (2.0-7.7); Basophil# 0.03 X10^3/uL; Basophil% 0.5 % (0-1); Eosinophil# 0.15 X10^3/uL; Eosinophils% 2.6 % (0-5); Hematocrit 42.6 % (37-47); Hemoglobin 13.9 g/dL (12.0-15.0); Lymphocyte # 1.78 X10^3/ul (0.83-4.51); Lymphocyte % 30.7 % (19-41); Mean Corp Hgb Conc 32.6 g/dL (32-36); Mean Corpuscular Hgb 30.4 pg (27.0-32.0); Mean Corpuscular Volume 93.2 fL (81-99); Mean Platelet Vol. 10.1 fl (6.2-12.0); Monocyte# 0.64 X10^3/uL; NRBC Flagged by Analyzer 0 % (0-5); Neutrophil # 3.17 X10^3/uL (2.7-7.7); Neutrophil % 54.7 % (47-70); Platelet Count 239 K/mm3 (150-450); RBC Distribution Width CV 14.3 % (11.6-14.6); RBC Distribution Width SD 48.7 fl (35.1-43.9); Red Blood Count 4.57 M/mm3 (4.2-5.4); White Blood Count 5.8 K/mm3 (4.4-11.0)
[2020-09-12 13:10] LABS: AST(SGOT) 22 U/L (15-37); Alanine Aminotransfer ALT/SGPT 24 U/L (13-56); Albumin, Serum 3.4 g/dL (3.2-5.0); Alkaline Phosphatase 103 U/L (45-117); Anion Gap 6 (5-15); BUN 16 mg/dL (7-18); BUN/Creat Ratio 27.6 RATIO (10-20); Chloride 106 mmol/L (98-107); Creatinine, Serum 0.58 mg/dL (0.55-1.02); EST Glomerular Filtration Rate 107 mL/min (>60); Est Glom Filt Rate - Afr Amer 129 mL/min (>60); Globulin 3.4 g/dL (2.2-4.2); Glucose 87 mg/dL (74-106); Potassium 3.7 mmol/L (3.5-5.1); Protein, Total 6.8 g/dL (6.4-8.2); Sodium Level 142 mmol/L (136-145)
== END ==
PROVIDERS: PCP Family Medicine; Visit Provider Family Medicine
DX: R63.4 Abnormal weight loss (principal)
CPT/HCPCS: 36415; 80053; 85025

== ENCOUNTER → 2020-12-23 14:52 | Outpatient (CLI) | payer MEDICARE, SELFPAY ==
[2020-04-25 17:06] VITALS: BMI 28.7
--- NOTE | 2020-12-23 14:54 | CT_ITS ---
STUDY: CT LEFT KNEE WITHOUT CONTRAST REASON FOR EXAM: Female, 80 years old. VARUS DEFOMRITY,NOT ELSEWHERE CLASSIFIED,L KNEE. PRESURGICAL PLANNING. RADIATION DOSAGE (If Supplied By Facility): CTDIvol = ( 17.49 ) mGy, DLP = ( 1265.59 ) mGycm TECHNIQUE: Transaxial CT imaging of the knee was performed. Coronal and sagittal images were reformatted. Individualized dose optimization techniques were used for this CT. COMPARISON: X-ray dated 08/08/2018. FINDINGS: No acute fracture line. No acute dislocation. No acute cortical destruction. Mild knee varus angulation. Mild/moderate ankle valgus angulation. Left hip: Uncomplicated left hip arthroplasty. Severe pubic symphysis arthrosis. Adductor peritendinitis (axial image 40 series 2). Moderate sacroiliac arthrosis. Left knee: Severe medial compartment arthrosis with vacuum phenomenon. Moderate lateral compartment arthrosis. Mild proximal tibiofibular arthrosis. Severe patellofemoral joint arthrosis. Quadriceps tendon enthesophyte. Chondrocalcinosis. Small joint effusion. Moderate soft tissue swelling with nonspecific medial fluid collection/bursitis (axial image 296 series 2). Small popliteal cyst. Left ankle: Spurring at the medial and lateral malleolus. Mild tibiotalar arthrosis. Achilles enthesophyte. Plantar spur. CT/Extremity Lower without Contra IMPRESSION: Advanced left knee osteoarthritis Left knee chondrocalcinosis with meniscal vacuum phenomenon (statistically underlying tears) Left knee small joint effusion and moderate soft tissue swelling with fluid collection/bursitis Uncomplicated left hip arthroplasty Mild/moderate left ankle degenerative features, as above Electronically Signed: Bladimir Jacobson DO at 9:40 EDT Tel , Service support ,
== END ==
PROVIDERS: PCP Family Medicine; Referring Provider Orthopaedic Surgery; Visit Provider Orthopaedic Surgery
DX: M21.162 Varus deformity, not elsewhere classified, left knee (principal); G89.29 Other chronic pain
CPT/HCPCS: 73700

== ENCOUNTER 2021-01-16 05:35 | Day surgery (SDC) | payer MEDICARE, SELFPAY ==
[2020-04-25 17:06] VITALS: BMI 28.7
--- NOTE | 2021-01-05 08:59 | EKG12_ITS ---
Test Reason : PREOP Blood Pressure : / mmHG Vent. Rate : 061 BPM Atrial Rate : 061 BPM P-R Int : 188 ms QRS Dur : 088 ms QT Int : 414 ms P-R-T Axes : 067 013 039 degrees QTc Int : 416 ms Normal sinus rhythm Normal ECG Confirmed by REMY TERRY, ORVILLE ([id number]), editor continuity and script JOYCE OLIVEROS ([id number]) on 01/10/2021 6:44:19 AM Referred By: Jaime Castillo Confirmed By:ORVILLE ALBERTO MD
--- NOTE | 2021-01-05 08:59 | RAD_ITS ---
STUDY: X-RAY CHEST REASON FOR EXAM: Female, 80 years old. PREOP TECHNIQUE: PA and lateral views of the chest. COMPARISON: Comparison is made with prior examination dated 04/18/2020. FINDINGS: Hyperinflation. The lungs are clear. There is no demonstrated pleural abnormality. Normal size heart. Normal mediastinum and donn. Normal visualized pulmonary arteries. There is atherosclerotic calcification of the aortic arch with tortuosity. There are diffuse degenerative changes of the visualized thoracic spine. Normal visualized ribs, clavicles, and shoulders. There is no demonstrated abnormality of the visualized soft tissue structures of the upper abdomen. RAD/Chest PA and Lateral IMPRESSION: Hyperinflation. The lungs are clear. Electronically Signed: Dawit Jerry MD at 12:33 EDT , Service support ,
[2021-01-05 10:39] LABS: Absolute Lymphocyte Count 2.18 X10^3/uL (0.83-4.51); Absolute Neutrophil Count 4.8 X10^3/uL (2.0-7.7); Basophil# 0.04 X10^3/uL; Basophil% 0.5 % (0-1); Eosinophil# 0.12 X10^3/uL; Eosinophils% 1.5 % (0-5); Hematocrit 42.8 % (37-47); Hemoglobin 13.7 g/dL (12.0-15.0); Lymphocyte # 2.18 X10^3/ul (0.83-4.51); Lymphocyte % 27.7 % (19-41); Mean Corpuscular Hgb 30.1 pg (27.0-32.0); Mean Corpuscular Volume 94.1 fL (81-99); Monocyte# 0.72 X10^3/uL; Monocyte% 9.1 % (0-10); NRBC Flagged by Analyzer 0 % (0-5); Neutrophil # 4.79 X10^3/uL (2.7-7.7); Neutrophil % 60.8 % (47-70); Platelet Count 238 K/mm3 (150-450); RBC Distribution Width CV 13.9 % (11.6-14.6); Red Blood Count 4.55 M/mm3 (4.2-5.4); White Blood Count 7.9 K/mm3 (4.4-11.0)
[2021-01-05 10:50] LABS: International Normalized Ratio 0.9
[2021-01-05 10:51] LABS: Partial Thromboplast Time 27.3 Seconds (24.1-36.2)
[2021-01-05 11:05] LABS: AST(SGOT) 23 U/L (15-37); Alanine Aminotransfer ALT/SGPT 21 U/L (13-56); Albumin, Serum 3.5 g/dL (3.2-5.0); Alkaline Phosphatase 103 U/L (45-117); Bilirubin, Direct 0.19 mg/dL (0.00-0.30); Globulin 3.6 g/dL (2.2-4.2); Magnesium 2.2 mg/dL (1.6-2.6); Protein, Total 7.1 g/dL (6.4-8.2)
[2021-01-05 11:24] LABS: Anion Gap 4 (5-15); BUN 16 mg/dL (7-18); BUN/Creat Ratio 28.5 RATIO (10-20); Calcium,Total 9.1 mg/dL (8.5-10.1); Chloride 107 mmol/L (98-107); Creatinine, Serum 0.56 mg/dL (0.55-1.02); EST Glomerular Filtration Rate 110 mL/min (>60); Est Glom Filt Rate - Afr Amer 134 mL/min (>60); Glucose 91 mg/dL (74-106); Potassium 3.8 mmol/L (3.5-5.1); Sodium Level 142 mmol/L (136-145)
[2021-01-16] VITALS (12 sets, daily range): BP systolic 91–145; BP diastolic 47–85; PULSE 70–87; RESP 16; TEMP 36.1–36.8; O2SAT 95–100; BMI 29.2
--- NOTE | 2021-01-16 | KNEE_PTH ---
PATIENT: SAMINA SHINE LOC: [facility] [place] U#:[id number] AGE/SX: 80/F ROOM: RE01/16/[address]: Dr. Jaime Castillo MD : [id number] BED: DIS: 01/16/2021 SPEC #: [id number] RECD: 01/16/21 12:51 STATUS: MARY REQ #: [id number] RADHA: 01/16/21 00:[address]: Jaime Castillo DEPT: SURGICAL PATHOLOGY RECD BY: Kosta Hess ENTERED: 01/16/21 12:51 SP TYPE: TOTAL KNEE OTHR DR: Dr. Bradley Del Valle MD Tissues: Knee, NOS Procedures: Decalcification bone/plaque Surgery Specimen Level IV HEADER OPERATION: ERAS, total knee replacement robotic arm assist PRE-OP DIAGNOSIS: Left knee primary osteoarthritis TISSUE SUBMITTED: Bone and soft tissue left knee MICROSCOPIC DIAGNOSIS Bone and tissue of left knee, total knee resection: Severe degenerative joint disease. Mild synovial hyperplasia. AM:leisa 01/18/2021 MICROSCOPIC DESCRIPTION Slides are reviewed. GROSS DESCRIPTION Received is one container designated bone and soft tissue left knee. The specimen consists of multiple fragments of baker-yellow bone measuring in aggregate 9 x 8 x 3.5 cm. Also in the specimen container are multiple fragments of yellow-white soft tissue measuring in aggregate 7.5 x 6 x 1.5 cm. A number of bony fragments contain articular surfaces consistent with tibial plateau and femoral condyle and displaying prominent osteophyte formation, eburnation, and bone erosion. Lands Resource Manager sections are submitted in two cassettes as follows: 1 - soft tissue, 2 - bone after decalcification. / SJ:leisa 01/16/21 TC:5 [facility]: [id number], [id number]
[2021-01-16] MEDS: Scopolamine 1mg/72hr Patch 1 PATCH TD (06:23)
[2021-01-16] MEDS: Gabapentin 600 MG Tablet PO (06:23)
[2021-01-16] MEDS: Celecoxib 200 MG Capsule 400 MG PO (06:23)
[2021-01-16] MEDS: Acetaminophen 500 MG Tablet 1000 MG PO (06:23)
[2021-01-16] MEDS: Lactated Ringers 1,000 ML 100 ML IV ×3 (06:25→09:30)
[2021-01-16 06:41] LABS: Bedside Glucose 65 mg/dL (70-110)
[2021-01-16] MEDS: Cefazolin 2 GM in 0.9% Normal Saline 100 ML IV (07:17)
[2021-01-16] MEDS: dexAMETHasone 10 MG/ML Vial IV (07:30)
--- NOTE | 2021-01-16 09:02 | PCM.OP.BLANK ---
Problems Associated Problem List Diagnoses (1) Arthritis of knee, degenerative: Operative Report Date of Procedure: 01/16/21 Preoperative diagnosis: left knee severe posttraumatic arthritis Postoperative diagnosis: Same Title of procedure : left total knee replacement, press fit DENNIS Surgeon: Jaime Castillo MD Lead Javascript Developer: Allegra Nowak PA-C Anesthesia: spinal, adductor canal nerve block Anesthesiologist:Dr. Robison / TIFFANY Special medications: Ancef, tranexamic acid Indications for surgery: Patient is a [80-year-old [female] with a history of knee arthritis appropriately treated and failed conservative measures and wished to proceed with total knee replacement. Patient was cleared for surgery by the medical doctor and has been evaluated by the anesthesia staff Findings: Intraoperative findings showed severe arthritis of the knee. Patient underwent knee replacement using geoladn press-fit total knee components Dennis robotic assisted. Size [5] femur, size [5] tibia, [29 x 9] asymmetric X3 patella, size [5-9 CS] X3 tibial polyethylene insert, knee was nicely balanced. Patella tracked well. Patient underwent standard wound closure in layers. Vicryl and strata fix sutures utilized followed by skin roc. branch assistant, physician food and nutrition services assistant, was utilized throughout the entire procedure. They were vital in helping with patient positioning, holding of retractors, exposing the tissues adequately for safe completion of the procedure including cutting of the bone, helping litigation coordinator appropriate alignment and sizing of the components, implantation of the components, as well as wound closure, bandage application, and safe patient transfer. Without assembler surgical garment, physician food and nutrition services assistant, surgical time would have been significantly increased, and surgical outcome could have been less optimal. Description of procedure: The patient was taken to the OR, transferred to the OR table. They were given a spinal anesthetic. Ancef was given IV preoperatively. Tranexamic acid was given IV preoperatively. Well-padded tourniquet was applied to the upper thigh of the operative leg. Nonoperative leg had a ELIZABETH hose and SCD on throughout. Operative limb was prepped padded and draped in usual orthopedic sterile fashion for the procedure. We began by injecting the pain relieving solution in the anterior superior aspect of the knee region. The limb was exsanguinated, and the tourniquet was applied to 250 mmHg. Made a midline incision through skin, subcutaneous tissue, bringing down us on the extensor mechanism. Medial parapatellar arthrotomy was carried out. Straw-colored joint fluid was evacuated. We raised a sleeve of tissue off the upper medial tibia. Resected some of the infrapatellar fat pad. We remove degenerative medial and lateral meniscus. Removed bone spurs from about the patella. We removed tissue off the anterior aspect of the distal femur. Patella was translated laterally and/or everted as needed throughout the procedure. ACL was resected. PCL was preserved. Collateral ligaments were preserved. Physician placed the retractors and food and nutrition services assistant held retractors protecting above ligaments throughout the procedure. Patella was everted. Measured. Appropriate resection was carried out leaving us between a 13 and 15 mm thick patella. Metal plate was applied. Pins were placed in the femur and tibia at appropriate locations being bicortical. Check pin was placed in the distal femur and upper tibia at appropriate location. Paymate robot was appropriately prepared femur then tibia. Knee was appropriately stressed in 90 degrees of flexion as well as in extension. Robot was appropriately manipulated to allow for approximately 19 to 21 mm of flexion and extension gap. Good sizing and alignment of components was noted on computer. Robotic cuts were carried out cutting the upper tibia first, followed by femoral cuts. Lead Javascript Developer help with retraction and protecting soft tissues throughout. Bone fragments were removed. we then sized off the upper tibia with the help of the food and nutrition services assistant. We then checked flexion extension gaps finding them to be adequate and equal. Tibial trial with plastic insert was inserted. Next the distal femoral trial was applied. Tibial tray was allowed to freefloat with a 9 mm insert. Knee was flexed and extended an external alignment guide is utilized. Tibial trial was pinned in place. Drill holes were placed into the distal femoral trial and it was removed. Punch was used on the upper tibial component and that was removed. The sclerotic bone was softened with a sharp pin. Bone spurs had been removed from the posterior medial and posterior lateral aspect of the femur while the food and nutrition services assistant lifted up on the distal femur and exposed each compartment. Patella was everted and measured. Patella was sized. Clamp was utilized. 3 drill holes were placed through the clamp held by the food and nutrition services assistant. Trial patella was placed and removed. Bleeding was controlled at the back of the knee with the bovey. Posterior knee soft tissues were carefully injected with pain relieving solution. Components were checked and open. . The bony surfaces cleaned and dried. Tibia, femur, patella press-fit into position. Tibial insert was placed just before placing the femur. Lead Javascript Developer held retractors exposing the bony surfaces of the tibia and femur which were hammered in position. Patella clamped into position.balancing was again checked with the computer. Checkpoints and femoral and tibial pins removed. we thoroughly irrigated and debrided the knee. Bleeding controlled with the Bovie. Knee was again thoroughly irrigated. Irresept solution utilized. Sterile Betadine solution utilized. patella noted to track nicely. We repaired the arthrotomy with a combination of #1 Vicryl and #2 strata fix. We did a mid layer of 1 Vicryl and #0 strata fix running. Roc were utilized on the incision as well as pin sites. Mepilex dressing applied. ELIZABETH hose and SCDs applied. Patient was awoken from their anesthetic, transferred back to their own bed and recovery room in satisfactory condition. Second dose of IV Tranexamic acid was given while closing wound. 2 g Ancef appropriate IV antibiotic to be utilized preoperatively. Hopeful discharge today. Physical therapy will be consulted. Aspirin 81 mg BID will be used for DVT prevention This note was generated with Relevant e-solution dictation software. It may contain incorrect words, spelling, and punctuation that were not noted in checking the note before signing.
--- NOTE | 2021-01-16 09:56 | RAD_ITS ---
STUDY: X-RAY - LEFT KNEE REASON FOR EXAM: Female, 80 years old. Post op tka TECHNIQUE: 2 view(s) of the knee. COMPARISON: Comparison is made with prior study dated 08/08/2018. FINDINGS: Normal visualized distal femur. Normal visualized proximal tibia and fibula. Normal proximal tibiofibular articulation. The patient is status post left knee replacement. There is good alignment. Postoperative soft tissue changes. RAD/Knee 1 or 2 Views IMPRESSION: Status post left knee replacement. There is good alignment. Postoperative soft tissue changes. Electronically Signed: Dawit Jerry MD at 14:26 EDT , Service support ,
[2021-01-16] MEDS: Cefazolin 1 GM/50 ML BAG IV (10:09)
--- NOTE | 2021-01-16 10:14 | SUR.PHASEI ---
etCO2 MONITORED , 32 READING. PER ERAS PROTOCOL.FACE MASK ON TILL 1130
== END 2021-01-16 14:09 | disposition home or self-care (01) ==
LOC: SDC 05:35 → AC 09:08
PROVIDERS: Anesthesiology; PCP Family Medicine; Referring Provider Orthopaedic Surgery; Visit Provider Orthopaedic Surgery
PROC: 0SRD0JZ Replacement of Left Knee Joint with Synthetic Substitute, Open Approach (ICD-10-PCS; CPT 27447; principal; 2021-01-16 06:45)
DX: M17.12 Unilateral primary osteoarthritis, left knee (principal); E78.00 Pure hypercholesterolemia, unspecified; Z96.651 Presence of right artificial knee joint; Z96.642 Presence of left artificial hip joint; Z79.899 Other long term (current) drug therapy
CPT/HCPCS: 01402; 27447; 64447; 76942; S2900; 36415; 71046; 73560; 80048; 80076; 82962; 83735; 85025; 85610; 85730; 87081; 88305; 88311; 93005; 97162; C1776; J7120; J2405

== ENCOUNTER 2021-03-30 09:53 | Outpatient (CLI) | payer MEDICARE, SELFPAY | END 2021-03-30 23:59 | disposition short-term general hospital (02) | LOC: LABSPEC 09:54 | PROVIDERS: PCP Family Medicine; Referring Provider Physician Assistant; Visit Provider Physician Assistant | DX: U07.1 COVID-19 (principal) | CPT/HCPCS: 87635; U0003; U0005 ==

== ENCOUNTER 2021-06-22 09:19 | Outpatient (CLI) | payer MEDICARE, SELFPAY ==
[2021-06-22 10:05] LABS: Absolute Lymphocyte Count 2.04 X10^3/uL (0.83-4.51); Absolute Neutrophil Count 4.6 X10^3/uL (2.0-7.7); Basophil# 0.04 X10^3/uL; Basophil% 0.5 % (0-1); Eosinophil# 0.19 X10^3/uL; Eosinophils% 2.5 % (0-5); Hematocrit 41.3 % (37-47); Hemoglobin 13.4 g/dL (12.0-15.0); Lymphocyte # 2.04 X10^3/ul (0.83-4.51); Lymphocyte % 26.5 % (19-41); Mean Corp Hgb Conc 32.4 g/dL (32-36); Mean Corpuscular Hgb 30.1 pg (27.0-32.0); Mean Corpuscular Volume 92.8 fL (81-99); Mean Platelet Vol. 9.7 fl (6.2-12.0); Monocyte# 0.78 X10^3/uL; Monocyte% 10.1 % (0-10); NRBC Flagged by Analyzer 0 % (0-5); Neutrophil # 4.63 X10^3/uL (2.7-7.7); Neutrophil % 60.1 % (47-70); Platelet Count 218 K/mm3 (150-450); RBC Distribution Width CV 14.9 % (11.6-14.6); RBC Distribution Width SD 51.3 fl (35.1-43.9); Red Blood Count 4.45 M/mm3 (4.2-5.4); White Blood Count 7.7 K/mm3 (4.4-11.0)
[2021-06-22 10:35] LABS: ALB/GLOB Ratio 0.9 RATIO (0.9-2.4); AST(SGOT) 40 U/L (15-37); Alanine Aminotransfer ALT/SGPT 41 U/L (13-56); Albumin, Serum 3.4 g/dL (3.2-5.0); Alkaline Phosphatase 146 U/L (45-117); Anion Gap 3 (5-15); BUN 13 mg/dL (7-18); BUN/Creat Ratio 23.5 RATIO (10-20); Chloride 107 mmol/L (98-107); Cholesterol 147 mg/dL (200); Creatinine, Serum 0.55 mg/dL (0.55-1.02); EST Glomerular Filtration Rate 112 mL/min (>60); Est Glom Filt Rate - Afr Amer 136 mL/min (>60); Globulin 3.6 g/dL (2.2-4.2); Glucose 96 mg/dL (74-106); High Density Lipoprotein 62 mg/dL; Potassium 3.8 mmol/L (3.5-5.1); Sodium Level 141 mmol/L (136-145); Triglycerides 78 mg/dL; Very Low Density Lipoprotein 16 mg/dL (5-40); Vitamin D,25 Hydroxy 55.4 ng/mL
== END 2021-06-22 23:59 | disposition home or self-care (01) ==
LOC: MFPLAB 09:20
PROVIDERS: PCP Family Medicine; Referring Provider Family Medicine; Visit Provider Family Medicine
DX: E78.00 Pure hypercholesterolemia, unspecified (principal); R23.3 Spontaneous ecchymoses; E55.9 Vitamin D deficiency, unspecified
CPT/HCPCS: 36415; 80053; 80061; 82306; 85025

== ENCOUNTER 2021-11-24 17:28 | Emergency (ER) | payer MEDICARE, SELFPAY ==
[2021-11-24 17:29] VITALS: BP 99/63; PULSE 66; RESP 14; TEMP 36.7; O2SAT 95; BMI 31.4
--- NOTE | 2021-11-24 18:08 | RAD_ITS ---
STUDY: XR Pelvis 1 or 2 Views 11/24/2021 6:30 PM REASON FOR EXAM: Female, 81 years old. Injury/Pain TECHNIQUE: XR Pelvis 1 or 2 Views COMPARISON: None FINDINGS: There is a non-specific bowel gas pattern. Normal visualized soft tissue structures. Normal bilateral iliac wings, sacroiliac joints and visualized sacrum. Normal visualized bilateral superior and inferior pubic rami. Normal pubic symphysis. Normal ischial tuberosities. Comminuted oblique displaced fracture of the proximal femur. Displaced fracture of the lesser trochanter. Normal right acetabulum. Normal right hip joint. Total left hip arthroplasty. Prosthetic left acetabulum. Normal left hip joint. RAD/Pelvis 1 or 2 Views IMPRESSION: RIGHT: comminuted oblique displaced fracture of the proximal femur. Displaced fracture of the lesser trochanter. LEFT: Total left hip arthroplasty. Electronically Signed: Vijay Grijalva MD at 19:15 EDT ,
--- NOTE | 2021-11-24 18:08 | RAD_ITS ---
EXAM: XR RIGHT FEMUR, 2 VIEWS CLINICAL INDICATION: Injury/Pain TECHNIQUE: Frontal and lateral views of the right femur. This report was created using Docker report generation technology. COMPARISON: None. FINDINGS: BONES/JOINTS: Comminuted oblique displaced fracture of the proximal femur. Displaced fracture of the lesser trochanter. Total right knee arthroplasty. No sclerotic or destructive changes observed. SOFT TISSUES: Unremarkable. No soft tissue swelling or gas. No radiopaque foreign body. RAD/Femur Min 2 Views IMPRESSION: Comminuted oblique displaced fracture of the proximal femur. Displaced fracture of the lesser trochanter. Electronically Signed: Vijay Grijalva MD at 19:01 EDT ,
[2021-11-24] MEDS: fentaNYL 100 MCG/2 ML Ampul 50 MCG IM (18:15)
[2021-11-24 18:25] LABS: Absolute Lymphocyte Count 1.82 X10^3/uL (0.83-4.51); Absolute Neutrophil Count 11.7 X10^3/uL (2.0-7.7); Basophil# 0.03 X10^3/uL; Basophil% 0.2 % (0-1); Eosinophil# 0.01 X10^3/uL; Eosinophils% 0.1 % (0-5); Hematocrit 37.8 % (37-47); Hemoglobin 12.4 g/dL (12.0-15.0); Lymphocyte # 1.82 X10^3/ul (0.83-4.51); Lymphocyte % 12.7 % (19-41); Mean Corp Hgb Conc 32.8 g/dL (32-36); Mean Corpuscular Hgb 30.3 pg (27.0-32.0); Mean Corpuscular Volume 92.4 fL (81-99); Mean Platelet Vol. 9.8 fl (6.2-12.0); Monocyte# 0.72 X10^3/uL; NRBC Flagged by Analyzer 0 % (0-5); Neutrophil # 11.69 X10^3/uL (2.7-7.7); Neutrophil % 81.6 % (47-70); Platelet Count 219 K/mm3 (150-450); RBC Distribution Width CV 14.4 % (11.6-14.6); RBC Distribution Width SD 48.5 fl (35.1-43.9); Red Blood Count 4.09 M/mm3 (4.2-5.4); White Blood Count 14.3 K/mm3 (4.4-11.0)
--- NOTE | 2021-11-24 18:30 | RAD_ITS ---
STUDY: XR Chest 1 View 11/24/2021 6:30 PM REASON FOR EXAM: Female, 81 years old. CHEST PAIN pre op COMPARISON: 01/05/2021 TECHNIQUE: XR Chest 1 View FINDINGS: There is no demonstrated pleural abnormality. Normal heart size. Normal mediastinum. Normal donn. Prominent appearing increased interstitial lung markings. Normal visualized pulmonary arteries. There is atherosclerotic calcification of the aortic arch with tortuosity. There are diffuse degenerative changes of the visualized thoracic spine. There is degenerative osteoarthritis of the bilateral shoulders. There is no demonstrated abnormality of the visualized soft tissue structures of the upper abdomen. RAD/Chest 1 View (Portable) IMPRESSION: There are no acute findings. Electronically Signed: Vijay Grijalva MD at 18:59 EDT ,
[2021-11-24 18:40] LABS: Prothrombin Time (Protime)PT. 12.7 SECONDS (11.7-14.9)
[2021-11-24 18:46] LABS: Anion Gap 6 (5-15); BUN 20 mg/dL (7-18); BUN/Creat Ratio 27.5 RATIO (10-20); Chloride 112 mmol/L (98-107); Creatinine, Serum 0.73 mg/dL (0.55-1.02); EST Glomerular Filtration Rate 82 mL/min (>60); Est Glom Filt Rate - Afr Amer 99 mL/min (>60); Estimated Creatinine Clearance 33.86 ml/min; Glucose 147 mg/dL (74-106); Potassium 4.4 mmol/L (3.5-5.1); Sodium Level 146 mmol/L (136-145)
[2021-11-24 18:53] VITALS: BP 113/56; PULSE 66; RESP 18; O2SAT 100
--- NOTE | 2021-11-24 18:56 | ED.RN ---
PT. HAD LARGE BOWEL MOVEMENT ON BEDPAN. PT. CLEANSED WITH BATH WIPES AND CHUCKS AND ATTENDS PLACED.
--- NOTE | 2021-11-24 19:23 | EKG12_ITS ---
Test Reason : FALL Blood Pressure : / mmHG Vent. Rate : 059 BPM Atrial Rate : 059 BPM P-R Int : 150 ms QRS Dur : 088 ms QT Int : 428 ms P-R-T Axes : 067 039 043 degrees QTc Int : 423 ms Sinus bradycardia Nonspecific T wave abnormality Abnormal ECG Confirmed by ADAM TERRY, YOVANI ([id number]), business editor JOYCE OLIVEROS ([id number]) on 11/28/2021 8:58:52 AM Referred By: DINORA Confirmed By:SARAH MEDINA MD
--- NOTE | 2021-11-24 19:24 | EX.ED.GENINJ ---
HPI History of Present Illness Chief Complaint: Fall Informant: patient Narrative Narrative: Patient is an 81-year-old female with history of hyperlipidemia and prior bilateral total knee arthroplasties performed by Dr. Jaime Castillo, presenting with fall and right hip pain. Patient states she was pulling bhargavi in her yard when it broke and she fell to the ground. She denies hitting her head. She denies loss of conscious. She has significant pain in her thigh. Denies any sense of numbness or tingling. Was brought to ED by EMS. Had 50 mcg of fentanyl in route. Currently feels that she does have a bowel movement has no other complaints at this time. [facility] Medical History Arthritis Back pain Bladder disease Easy bruising Ganglion cyst High cholesterol History of pain when walking Non-smoker Wears glasses Wears hearing aid Home Medications ascorbic acid (vitamin C) 500 mg capsule 500 mg PO DAILY 08/22/18 [History Last Taken Unknown] atorvastatin 20 mg tablet 20 mg PO DAILY 08/22/18 [History Last Taken Unknown] cholecalciferol (vitamin D3) 25 mcg (1,000 unit) capsule 1,000 unit PO DAILY 08/22/18 [History Last Taken Unknown] ferrous sulfate 325 mg (65 mg iron) tablet (Feosol) 325 mg PO DAILY 08/22/18 [History Last Taken Unknown] ascorbic acid 125 mg-collagen, hydrolyzed 740 mg capsule (Collagen Plus Vitamin C) 1 cap PO DAILY 01/02/21 [History Last Taken Unknown] multivitamin 1 cap PO DAILY 01/02/21 [History Last Taken Unknown] Allergy/AdvReac Type Severity Reaction Status Date / Time No Known Allergies Allergy Verified 11/24/21 17:33 Family History Mother Hypertension Father CVA (cerebral vascular accident) Surgical History H/O section Hx of tonsillectomy Hx of total hip arthroplasty Hx of total knee replacement Social History Smoking Status: Never smoker alcohol intake: never ROS ROS ED Constitutional Constitutional ED: Denies chills or fever(s) Eyes Eyes: Denies change in vision ENT ENT ED: Denies rhinorrhea or sore throat Cardiovascular Cardiovascular: Denies chest pain Respiratory/Chest Respiratory/Chest: Denies cough Gastrointestinal Gastrointestinal: Denies abdominal pain, nausea or vomiting Genitourinary Genitourinary ED: Denies dysuria Musculoskeletal Musculoskeletal: Reports myalgias and other Details: right hip Integumentary Denies rash Neurologic Neurologic: Denies headache(s), paresthesias or weakness Psychiatric Psychiatric: Denies anxiety Hematologic/Lymphatic Hematologic/Lymphatic: Denies easy bleeding or easy bruising EXAM Physical Exam Const Vital Signs: 11/24/21 17:29 11/24/21 17:32 11/24/21 18:53 Temperature 98.0 F Temperature Source Oral Pulse Rate 66 66 Respiratory Rate 14 18 Respiratory Effort Normal Non-Labored Respiratory Depth Normal Respiratory Pattern Normal Blood Pressure 99/63 113/56 L Blood Pressure Mean 75 75 Pulse Ox 95 100 Oxygen Delivery Method Room Air Room Air Nasal Cannula Oxygen Flow Rate (L/min) 2 11/24/21 20:54 Temperature 97.9 F Temperature Source Pulse Rate 68 Respiratory Rate 18 Respiratory Effort Respiratory Depth Respiratory Pattern Blood Pressure 110/57 L Blood Pressure Mean 74 Pulse Ox 100 Oxygen Delivery Method Oxygen Flow Rate (L/min) Positive well nourished and well developed Constitutional Narrative: Uncomfortable secondary to pain General Appearance ED: well developed HEENT atraumatic Eyes PERRL and EOMs intact bilaterally Neck full ROM Neck Narrative: No midline tenderness Chest Wall inspection of chest normal Resp normal respiratory effort and clear to auscultation bilaterally Cardio regular rhythm and no murmurs Cardio Narrative: 2+ DP pulses Rate: regular rate GI normal to inspection, nondistended, normoactive bowel sounds, non-tender and non-distended Back/Spine normal to inspection Extremity Extremity Narrative: Shortened and externally rotated right lower extremity. Significant pain with palpation of the proximal thigh and area of the greater trochanter. No other bony tenderness or deformity appreciated. Pelvis is stable. Neuro oriented x3, no focal motor deficits and no sensory deficits noted Psych mental status grossly normal Skin no rashes or lesions noted and no wounds MDM MDM MDM Narrative Medical decision making narrative: Patient evaluated for sudden onset of right hip pain after mechanical fall. Physical exam is highly concerning for hip fracture. She is given additional 50 mcg of fentanyl in the ER. X-ray interpreted by myself and then by radiology shows a comminuted oblique displaced fracture of the proximal femur and displaced fracture of the lesser trochanter. Patient does have a leukocytosis of 14.3 which I suspect is reactive from her injury. No obvious source of infection is found. BMP shows a mild hypernatremia of 146 with chloride of 112 however her creatinine is normal at 0.73. I suspect she is mildly dehydrated. Is given IV fluids in the emergency room. We discussed the case with orthopedics and anticipate admission to medicine service for surgical management of her femur fracture. Spoke with orthopedics, Dr. Salazar who felt the patient benefit from an Ortho trauma evaluation and transfer to a larger facility. Patient excepted by Dr. Nunez trauma but would like patient to go to the ER. Discussed with Dr. Wilson at [facility]. Patient agreeable this plan of care. Lab Data Labs: Laboratory Results - last 24 hr 11/24/21 11/24/21 11/24/21 18:15 18:15 18:15 WBC 14.3 H RBC 4.09 L Hgb 12.4 Hct 37.8 MCV 92.4 MCH 30.3 MCHC 32.8 RDW Std Deviation 48.5 H RDW Coeff of Meka 14.4 Plt Count 219 MPV 9.8 Immature Gran % (Auto) 0.400 Neut % (Auto) 81.6 H Lymph % (Auto) 12.7 L [place] % (Auto) 5.0 Eos % (Auto) 0.1 Baso % (Auto) 0.2 Absolute Neuts (auto) 11.7 H Absolute Lymphs (auto) 1.82 Nucleated RBC % 0 PT 12.7 INR 1.0 Sodium 146 H Potassium 4.4 Chloride 112 H Carbon Dioxide 28.0 Anion Gap 6 BUN 20 H Creatinine 0.73 Estim Creat Clear Calc 33.86 Est GFR (MDRD) Af Amer 99 Est GFR (MDRD) Non-Af 82 BUN/Creatinine Ratio 27.5 H Glucose 147 H Calcium 9.0 Urine Color Urine Clarity Urine pH Ur Specific [place] Urine Protein Urine Glucose (UA) Urine Ketones Urine Occult Blood Urine Nitrite Urine Bilirubin Urine Urobilinogen Ur Leukocyte Esterase Urine RBC Urine WBC Ur Squamous Epith Cells Urine Bacteria Urine Mucus 11/24/21 19:35 WBC RBC Hgb Hct MCV MCH MCHC RDW Std Deviation RDW Coeff of Meka Plt Count MPV Immature Gran % (Auto) Neut % (Auto) Lymph % (Auto) [place] % (Auto) Eos % (Auto) Baso % (Auto) Absolute Neuts (auto) Absolute Lymphs (auto) Nucleated RBC % PT INR Sodium Potassium Chloride Carbon Dioxide Anion Gap BUN Creatinine Estim Creat Clear Calc Est GFR (MDRD) Af Amer Est GFR (MDRD) Non-Af BUN/Creatinine Ratio Glucose Calcium Urine Color Yellow Urine Clarity Clear Urine pH 6.0 Ur Specific [place] 1.020 Urine Protein 30 H Urine Glucose (UA) Normal Urine Ketones 5 H Urine Occult Blood Negative Urine Nitrite Negative Urine Bilirubin Negative Urine Urobilinogen Normal Ur Leukocyte Esterase Negative Urine RBC 0 SEEN Urine WBC 0-5 SEEN Ur Squamous Epith Cells 0-5 SEEN Urine Bacteria 2+ Urine Mucus 0 SEEN Radiography Diagnostic Testing: Clinical Impression(s) from Imaging Studies Femur X-Ray 11/24/21 18:08 IMPRESSION: Comminuted oblique displaced fracture of the proximal femur. Displaced fracture of the lesser trochanter. Electronically Signed: Vijay Grijalva MD at 19:01 EDT , Pelvis X-Ray 11/24/21 18:08 IMPRESSION: RIGHT: comminuted oblique displaced fracture of the proximal femur. Displaced fracture of the lesser trochanter. LEFT: Total left hip arthroplasty. Electronically Signed: Vijay Grijalva MD at 19:15 EDT , Chest X-Ray 11/24/21 18:30 IMPRESSION: There are no acute findings. Electronically Signed: Vijay Grijalva MD at 18:59 EDT , Rhythm Strip Rhythm Strip: Sinus Rhythm Rate: 59 Ectopy: None EKG Initial EKG: Attestation: I personally reviewed and interpreted this EKG as follows: Interpretation: Sinus Bradycardia Comments: Sinus bradycardia at a rate of 59 bpm Normal axis Normal intervals T wave inversions in 2, 3 and V3 with no reciprocal changes Prior EKG tracings: not available for review Prior: No Prior Discharge Plan Triage Chief Complaint: Fall ED Provider: Lila Eldridge Dx/Rx/DC Orders Clinical Impression: Femur fracture, right, Closed fracture of lesser trochanter of right femur, Fall Prescriptions: No Action ferrous sulfate [Feosol] 325 mg (65 mg iron) tablet 325 mg PO DAILY cholecalciferol (vitamin D3) 1,000 unit capsule 1,000 unit capsule 1,000 unit PO DAILY ascorbic acid (vitamin C) 500 mg capsule 500 mg PO DAILY atorvastatin 20 mg tablet 20 mg PO DAILY multivitamin Capsule 1 cap PO DAILY Collagen Plus Vitamin C 125-740 mg Capsule 1 cap PO DAILY Primary Care Provider: Bradley Del Valle Referrals: Bradley Del Valle MD [Primary Care Provider] - Disposition Disposition: Acute Care Hospital Discharge Location: [facility]
--- NOTE | 2021-11-24 19:25 | PCM.HP.STD ---
HPI - General HPI Narrative SAMINA SHINE, is a 81 F who presents [facility] Medical History Arthritis Back pain Bladder disease Easy bruising Ganglion cyst High cholesterol History of pain when walking Non-smoker Wears glasses Wears hearing aid Home Medications ascorbic acid (vitamin C) 500 mg capsule 500 mg PO DAILY 08/22/18 [History Last Taken Unknown] atorvastatin 20 mg tablet 20 mg PO DAILY 08/22/18 [History Last Taken Unknown] cholecalciferol (vitamin D3) 25 mcg (1,000 unit) capsule 1,000 unit PO DAILY 08/22/18 [History Last Taken Unknown] ferrous sulfate 325 mg (65 mg iron) tablet (Feosol) 325 mg PO DAILY 08/22/18 [History Last Taken Unknown] ascorbic acid 125 mg-collagen, hydrolyzed 740 mg capsule (Collagen Plus Vitamin C) 1 cap PO DAILY 01/02/21 [History Last Taken Unknown] multivitamin 1 cap PO DAILY 01/02/21 [History Last Taken Unknown] Allergy/AdvReac Type Severity Reaction Status Date / Time No Known Allergies Allergy Verified 11/24/21 17:33 Family History Mother Hypertension Father CVA (cerebral vascular accident) Surgical History H/O section Hx of tonsillectomy Hx of total hip arthroplasty Hx of total knee replacement Social History Smoking Status: Never smoker alcohol intake: never Vital Signs Vital Signs Vital Signs: 11/24/21 17:29 11/24/21 17:32 11/24/21 18:53 Temperature 98.0 F Temperature Source Oral Pulse Rate 66 66 Respiratory Rate 14 18 Respiratory Effort Normal Non-Labored Respiratory Depth Normal Respiratory Pattern Normal Blood Pressure 99/63 113/56 L Blood Pressure Mean 75 75 Pulse Ox 95 100 Oxygen Delivery Method Room Air Room Air Nasal Cannula Oxygen Flow Rate (L/min) 2 Weight Weight: 75.3 kg Body Mass Index (BMI) 31.4 Results Lab / Micro Data Result Diagrams: 11/24/21 18:15 11/24/21 18:15 Labs: Laboratory Results - last 24 hr 11/24/21 18:15: WBC 14.3 H, RBC 4.09 L, Hgb 12.4, Hct 37.8, MCV 92.4, MCH 30.3, MCHC 32.8, RDW Std Deviation 48.5 H, RDW Coeff of Meka 14.4, Plt Count 219, MPV 9.8, Immature Gran % (Auto) 0.400, Neut % (Auto) 81.6 H, Lymph % (Auto) 12.7 L, Noble % (Auto) 5.0, Eos % (Auto) 0.1, Baso % (Auto) 0.2, Absolute Neuts (auto) 11.7 H, Absolute Lymphs (auto) 1.82, Nucleated RBC % 0 11/24/21 18:15: PT 12.7, INR 1.0 11/24/21 18:15: Sodium 146 H, Potassium 4.4, Chloride 112 H, Carbon Dioxide 28.0, Anion Gap 6, BUN 20 H, Creatinine 0.73, Estim Creat Clear Calc 33.86, Est GFR (MDRD) Af Amer 99, Est GFR (MDRD) Non-Af 82, BUN/Creatinine Ratio 27.5 H, Glucose 147 H, Calcium 9.0 Radiology Impression Femur X-Ray 11/24/21 18:08 IMPRESSION: Comminuted oblique displaced fracture of the proximal femur. Displaced fracture of the lesser trochanter. Electronically Signed: Vijay Grijalva MD at 19:01 EDT , Pelvis X-Ray 11/24/21 18:08 IMPRESSION: RIGHT: comminuted oblique displaced fracture of the proximal femur. Displaced fracture of the lesser trochanter. LEFT: Total left hip arthroplasty. Electronically Signed: Vijay Grijalva MD at 19:15 EDT , Chest X-Ray 11/24/21 18:30 IMPRESSION: There are no acute findings. Electronically Signed: Vijay Grijalva MD at 18:59 EDT , Assessment & Plan Assessment/Plan (1) Hip fracture: PLAN: Plan [] fracture Code 96436 Emergent department doctor discussed the case with []. Inpatient consult for orthopedic surgery. Morphine IV and oxycodone as needed ordered. Tylenol as needed ordered. Bowel protocol and antiemetics IV ordered. Keep n.p.o. [ While n.p.o. lactated Ringer's ordered.] Check vitamin D level. Preoperative EKG unremarkable ACS NSQIP surgical risk calculator with [below/above] surgical risk.
[2021-11-24 19:42] LABS: Mucous, Urine 0 SEEN /hpf (<or=2+); Red Blood Cells-Urine 0 SEEN /hpf (0-5)
[2021-11-24 19:49] LABS: Color, Urine Yellow (Yellow); Glucose, Dipstick Normal (Normal); Ketone-Dipstick 5 mg/dl (Negative); Leukocyte Esterase-Dipstick Negative /ul (Negative); Nitrite-Dipstick Negative (Negative); Occult Blood-Urine Negative /ul (Negative); Protein-Dipstick 30 mg/dl (Negative); Urine Bilirubin Dipstick Negative (Negative); Urine Clarity Clear (Clear); Urine Urobilinogen Normal (Normal)
[2021-11-24 20:00] LABS: Bacteria 2+ /hpf (None Seen); Squamous Epithelial Cells - UA 0-5 SEEN /hpf (5-10); White Blood Cells 0-5 SEEN /hpf (0-5)
[2021-11-24] MEDS: 0.9% Normal Saline 1,000 ML 150 ML IV (20:39)
[2021-11-24 20:54] VITALS: BP 110/57; PULSE 68; RESP 18; TEMP 36.6; O2SAT 100
== END 2021-11-24 22:40 | disposition short-term general hospital (02) ==
PROVIDERS: Emergency Provider Emergency Medicine; PCP Family Medicine; Visit Provider Emergency Medicine
DX: S72.121A Displaced fracture of lesser trochanter of right femur, initial encounter for closed fracture (principal); W19.XXXA Unspecified fall, initial encounter; E87.0 Hyperosmolality and hypernatremia; E78.00 Pure hypercholesterolemia, unspecified; M19.90 Unspecified osteoarthritis, unspecified site; Z79.899 Other long term (current) drug therapy
CPT/HCPCS: 51702; 71045; 72170; 73552; 80048; 81001; 85025; 85610; 87811; 93005; 96360; 96361; 96372; 99285; J7030; A4216

== ENCOUNTER → 2022-08-02 | Outpatient (CLI) | payer MEDICARE, SELFPAY ==
[2022-08-02 10:40] LABS: Vitamin D,25 Hydroxy 68.6 ng/mL
[2022-08-02 10:44] LABS: Anion Gap 4 (5-15); BUN 19 mg/dL (7-18); BUN/Creat Ratio 36.5 RATIO (10-20); Calcium,Total 8.9 mg/dL (8.5-10.1); Chloride 110 mmol/L (98-107); Cholesterol 159 mg/dL (200); Creatinine, Serum 0.52 mg/dL (0.55-1.02); EST Glomerular Filtration Rate 120 mL/min (>60); Est Glom Filt Rate - Afr Amer 145 mL/min (>60); Glucose 97 mg/dL (74-106); High Density Lipoprotein 66 mg/dL; Potassium 4.3 mmol/L (3.5-5.1); Sodium Level 142 mmol/L (136-145); Triglycerides 56 mg/dL; Very Low Density Lipoprotein 11 mg/dL (5-40)
== END | disposition home or self-care (01) ==
LOC: MFPLAB 09:14
PROVIDERS: PCP Family Medicine; Visit Provider Family Medicine
DX: Z00.00 Encounter for general adult medical examination without abnormal findings (principal); E55.9 Vitamin D deficiency, unspecified; I10 Essential (primary) hypertension
CPT/HCPCS: 36415; 80048; 80061; 82306

== ENCOUNTER → 2022-08-02 | Outpatient (CLI) | payer MEDICARE, SELFPAY ==
--- NOTE | 2022-08-02 14:08 | BI_ITS ---
MAMMOGRAPHY - BILATERAL SCREENING REASON FOR EXAM: Female, 82 years old. Routine annual screening examination. PERTINENT HISTORY: Non-contributory. TECHNIQUE: Digital bilateral breast cyndi (3D mammographic acquisition) in the CC and MLO projections. 2-D mediolateral oblique (MLO) and craniocaudad (CC) views of both breasts were obtained. CAD: Full Field Digital Mammography with Computer Added Detection was performed. COMPARISON: Comparison is made with prior study dated August 03, 2019 and August 01, 2018. FINDINGS: Breast Composition: There are scattered areas of fibroglandular density. There are no dominant masses or suspicious calcifications. No other significant abnormalities are identified. There has been no significant change since the prior study. BI/SCRN MAMM (CAD)W/CYNDI BILAT IMPRESSION: Stable bilateral screening mammogram. Yearly follow-up mammogram recommended. (A) ASSESSMENT CATEGORY: BIRADS Category 1: Negative. A letter regarding these results will be sent to the patient by the facility within 30 days. Approximately 10% of breast cancers are not detected by mammography. A normal mammogram should not delay biopsy of a clinically suspicious abnormality. [id number] Electronically Signed: Dawit Jerry MD at 15:12 EDT ,
--- NOTE | 2022-08-02 14:15 | BD_ITS ---
STUDY: DUAL ENERGY X-RAY ABSORPTIOMETRY / DXA REASON FOR EXAM: Female, 82 years old. N95.9 TECHNIQUE: Bone Mineral Density (BMD) measurements of lumbar spine and left forearm were obtained. COMPARISON: Comparison is made with prior study. FINDINGS: Lumbar Spine (L1-L4): g/cm2 (0.670) / T-score (-2.8) / Z-score (-0.3) Findings are suggestive of osteoporosis with a high fracture risk. Left Forearm: g/cm2 (0.493) / T-score (-1.6) / Z-score (1.5) The T-Scores on the most recent prior examination were: Lumbar Spine (L1-L4): There has been worsening of bone density since the previous examination. BD/Dexa Bone Density Study IMPRESSION: The patient is considered osteoporotic as outlined below according to World Perez Organization (WHO) criteria with a high fracture risk. There has been worsening of bone density since the previous examination. Reference Information: The T-score is the number of standard deviations above or below the standard which is normal for young adults at their peak bone mineral density. The World Health Organization (WHO) interprets the T-scores as follows: Above -1 Normal bone density Between -1 and -2.5 Osteopenia Equal to / or below -2.5 Osteoporosis As a practical clinical guideline, osteopenia may be graded as follows: Mild -1 through -1.5 Moderate -1.6 through -2.0 Severe -2.1 through -2.4 The Z-score is the number of standard deviations above or below age-matched controls. A Z-score of less than -1.5 would be considered abnormal. References: 1. NIH Osteoporosis and Related Bone Diseases www osteo.org 2. International Society for Clinical Densitometry www iscd.org 3. National Osteoporosis Foundation www nof.org Electronically Signed: Dawit Jerry MD at 14:02 EDT ,
== END | disposition home or self-care (01) ==
LOC: OPBD 14:05
PROVIDERS: PCP Family Medicine; Referring Provider Family Medicine; Visit Provider Family Medicine
DX: Z12.31 Encounter for screening mammogram for malignant neoplasm of breast (principal); N95.9 Unspecified menopausal and perimenopausal disorder; E55.9 Vitamin D deficiency, unspecified; I10 Essential (primary) hypertension; Z00.00 Encounter for general adult medical examination without abnormal findings
CPT/HCPCS: 36415; 77063; 77067; 77080; 80048; 80061; 82306

== ENCOUNTER → 2023-03-01 | Outpatient (CLI) | payer MEDICARE, SELFPAY ==
[2023-03-01 15:51] LABS: Absolute Lymphocyte Count 2.31 X10^3/uL (0.83-4.51); Absolute Neutrophil Count 2.6 X10^3/uL (2.0-7.7); Basophil# 0.04 X10^3/uL; Basophil% 0.7 % (0-1); Eosinophil# 0.15 X10^3/uL; Eosinophils% 2.6 % (0-5); Hematocrit 42.4 % (37-47); Hemoglobin 13.4 g/dL (12.0-15.0); Lymphocyte # 2.31 X10^3/ul (0.83-4.51); Lymphocyte % 39.3 % (19-41); Mean Corp Hgb Conc 31.6 g/dL (32-36); Mean Corpuscular Hgb 30.2 pg (27.0-32.0); Mean Corpuscular Volume 95.5 fL (81-99); Mean Platelet Vol. 10.1 fl (6.2-12.0); Monocyte# 0.75 X10^3/uL; Monocyte% 12.8 % (0-10); NRBC Flagged by Analyzer 0 % (0-5); Neutrophil # 2.59 X10^3/uL (2.7-7.7); Neutrophil % 43.9 % (47-70); Platelet Count 266 K/mm3 (150-450); RBC Distribution Width CV 14.4 % (11.6-14.6); Red Blood Count 4.44 M/mm3 (4.2-5.4); White Blood Count 5.9 K/mm3 (4.4-11.0)
[2023-03-01 16:49] LABS: ALB/GLOB Ratio 0.9 RATIO (0.9-2.4); AST(SGOT) 39 U/L (15-37); Alanine Aminotransfer ALT/SGPT 45 U/L (13-56); Albumin, Serum 3.3 g/dL (3.2-5.0); Alkaline Phosphatase 117 U/L (45-117); Anion Gap 2 (5-15); BUN 22 mg/dL (7-18); Chloride 110 mmol/L (98-107); Creatinine, Serum 0.56 mg/dL (0.55-1.02); EST Glomerular Filtration Rate 109 mL/min (>60); Est Glom Filt Rate - Afr Amer 132 mL/min (>60); Globulin 3.6 g/dL (2.2-4.2); Glucose 96 mg/dL (74-106); Potassium 4.2 mmol/L (3.5-5.1); Protein, Total 6.9 g/dL (6.4-8.2); Sodium Level 141 mmol/L (136-145)
== END | disposition home or self-care (01) ==
LOC: MFPLAB 11:42
PROVIDERS: PCP Family Medicine; Visit Provider Family Medicine
DX: K92.1 Melena (principal)
CPT/HCPCS: 36415; 80053; 85025

== ENCOUNTER 2023-07-18 10:29 | Outpatient (CLI) | payer MEDICARE, SELFPAY ==
[2023-07-18 11:40] LABS: Absolute Lymphocyte Count 1.78 X10^3/uL (0.83-4.51); Absolute Neutrophil Count 2.3 X10^3/uL (2.0-7.7); Basophil# 0.03 X10^3/uL; Basophil% 0.6 % (0-1); Eosinophil# 0.13 X10^3/uL; Eosinophils% 2.7 % (0-5); Hematocrit 41.1 % (37-47); Hemoglobin 13.4 g/dL (12.0-15.0); Lymphocyte # 1.78 X10^3/ul (0.83-4.51); Mean Corp Hgb Conc 32.6 g/dL (32-36); Mean Corpuscular Hgb 30.3 pg (27.0-32.0); Mean Platelet Vol. 9.9 fl (6.2-12.0); Monocyte# 0.53 X10^3/uL; NRBC Flagged by Analyzer 0 % (0-5); Neutrophil # 2.33 X10^3/uL (2.7-7.7); Neutrophil % 48.5 % (47-70); Platelet Count 240 K/mm3 (150-450); RBC Distribution Width CV 14.3 % (11.6-14.6); RBC Distribution Width SD 49.1 fl (35.1-43.9); Red Blood Count 4.42 M/mm3 (4.2-5.4); White Blood Count 4.8 K/mm3 (4.4-11.0)
[2023-07-18 12:17] LABS: Ferritin 233 ng/mL (8-252); Iron 111 ug/dL (50-170); Iron Binding Capacity,Total 277 ug/dL (250-450); PERCENT IRON SATURATION 40.1 % (15.0-55.0)
== END 2023-07-18 23:59 | disposition home or self-care (01) ==
LOC: MTLAB 10:31
PROVIDERS: PCP Family Medicine; Referring Provider Family Medicine; Visit Provider Family Medicine
DX: R19.5 Other fecal abnormalities (principal)
CPT/HCPCS: 36415; 82728; 83540; 83550; 85025

== ENCOUNTER → 2024-07-31 | Outpatient (CLI) | payer MEDICARE, SELFPAY ==
[2024-07-31 15:55] LABS: Absolute Lymphocyte Count 1.89 X10^3/uL (0.83-4.51); Absolute Neutrophil Count 2.5 X10^3/uL (2.0-7.7); Basophil# 0.03 X10^3/uL; Basophil% 0.6 % (0-1); Eosinophil# 0.16 X10^3/uL; Eosinophils% 3.1 % (0-5); Hematocrit 40.1 % (37-47); Hemoglobin 12.8 g/dL (12.0-15.0); Lymphocyte # 1.89 X10^3/ul (0.83-4.51); Lymphocyte % 36.6 % (19-41); Mean Corp Hgb Conc 31.9 g/dL (32-36); Mean Corpuscular Hgb 30.5 pg (27.0-32.0); Mean Corpuscular Volume 95.7 fL (81-99); Mean Platelet Vol. 10.4 fl (6.2-12.0); Monocyte# 0.58 X10^3/uL; Monocyte% 11.2 % (0-10); NRBC Flagged by Analyzer 0 % (0-5); Neutrophil # 2.49 X10^3/uL (2.7-7.7); Neutrophil % 48.3 % (47-70); Platelet Count 202 K/mm3 (150-450); RBC Distribution Width SD 53.7 fl (35.1-43.9); Red Blood Count 4.19 M/mm3 (4.2-5.4); White Blood Count 5.2 K/mm3 (4.4-11.0)
[2024-07-31 17:00] LABS: ALB/GLOB Ratio 1.6 RATIO (0.9-2.4); AST(SGOT) 28 U/L (<=31); Alanine Aminotransfer ALT/SGPT 18 U/L (<=34); Albumin, Serum 3.9 g/dL (3.4-4.8); Alkaline Phosphatase 97 U/L (35-104); Anion Gap 9 (5-15); BUN 19 mg/dL (4-19); BUN/Creat Ratio 33.3 RATIO (10-20); Carbon Dioxide 26.3 mmol/L (21.0-32.0); Chloride 108 mmol/L (98-108); Cholesterol 156 mg/dL (<=200); Creatinine, Serum 0.58 mg/dL (0.70-1.20); EST Glomerular Filtration Rate 90 (>60); Globulin 2.4 g/dL (2.2-4.2); Glucose 87 mg/dL (70-99); High Density Lipoprotein 57 mg/dL; Low Density Lipoprotein Calc. 82 mg/dL; Potassium 4.2 mmol/L (3.3-5.1); Protein, Total 6.3 g/dL (5.9-8.4); Sodium Level 144 mmol/L (133-145); Total Bilirubin 0.76 mg/dL (0.00-1.30); Triglycerides 82 mg/dL; Very Low Density Lipoprotein 16 mg/dL (5-40); Vitamin D,25 Hydroxy 64.2 ng/mL (30-100); cholesterol:hdl ratio screen 2.72
== END | disposition home or self-care (01) ==
LOC: MFPLAB 10:12
PROVIDERS: PCP Family Medicine; Referring Provider Family Medicine; Visit Provider Family Medicine
DX: E55.9 Vitamin D deficiency, unspecified (principal)
CPT/HCPCS: 36415; 80053; 80061; 82306; 85025